=== PATIENT | female | born 1955 | race Caucasian/White ===

== ENCOUNTER 2017-09-12 16:10 | Emergency (ER) | payer MEDICARE, OTHER ==
[2017-09-12 16:55] VITALS: BP 104/68
[2017-09-12] MEDS ORDERED: HYDROmorphone 0.5 MG/0.5 ML Syringe IM ONE (18:14)
[2017-09-12] MEDS ORDERED: Cyclobenzaprine 10 MG Tab PO ONE (18:15)
[2017-09-12] MEDS ORDERED: Ketorolac 60 MG/2 ML SDV IM ONE (18:15)
--- NOTE | 2017-09-12 18:19 | EDM.PDOC ---
ED HPI GENERAL MEDICAL PROBLEM - General Chief Complaint: Back Pain or Injury Stated Complaint: FALL/RIB INJURY Time Seen by Provider: 09/12/17 17:39 Source of Information: Reports: Patient History Limitations: Reports: No Limitations - History of Present Illness INITIAL COMMENTS - FREE TEXT/NARRATIVE: Patient is a 61-year-old female who presents to the ED complaining of right lateral chest discomfort. Patient states she slipped and fell on a large trunk earlier today at approximately 2:00 p.m.. Pain is isolated to the right lateral ribs with increase noted with taking a deep breath, palpation, and movement. Has a history of fractured ribs in the past and states similar symptoms current today. No shortness of breath, nausea/vomiting, abdominal pain, no n/t to extremities, neck or back pain, or any additional complaints. Pain currently 6 out of 10. She has not taken any medications for discomfort. She does have a history of fibromyalgia, diabetic neuropathy, arthritis, depression, and utilize medical marijuana. In the past she's been on narcotics. Right Chest Pain Score (Numeric/FACES): 6 - Related Data Allergies Allergy/AdvReac Type Severity Reaction Status Date / Time butorphanol tartrate Allergy Mild Hives Verified 09/12/17 16:52 [From Stadol] ketorolac Allergy Mild Itching Verified 09/12/17 19:36 meperidine HCl [From Demerol] Allergy Mild Hives Verified 09/12/17 16:52 propoxyphene HCl Allergy Mild Hives Verified 09/12/17 16:52 [From Darvon] propoxyphene napsylate Allergy Mild Hives Verified 09/12/17 16:52 [From Darvocet-N] codeine Allergy Hives Verified 09/12/17 16:52 sulfacetamide Allergy Hives Verified 09/12/17 16:52 Home Meds: Home Meds Cholecalciferol (Vitamin D3) [Vitamin D3] 2,000 unit PO DAILY 04/02/14 [History] Venlafaxine [Effexor] 100 mg PO BID 04/02/14 [History] traMADol [Ultram] 50 mg PO TID PRN 04/02/14 [History] Albuterol Sulfate [Proair Respiclick] 2 puff INH Q4H PRN 05/13/15 [History] Alum Hydrox/Mag Hydrox/Simeth [Maalox Advanced] 30 mg PO Q4H PRN 05/13/15 [ History] Benzonatate 200 mg PO Q8H PRN 05/13/15 [History] Buprenorphine [Butrans] 15 mcg TOP WEEKLY 05/13/15 [History] Cyanocobalamin (Vitamin B-12) [Vitamin B-12] 1,000 mcg PO DAILY 05/13/15 [ History] Furosemide [Lasix] 20 mg PO DAILY 05/13/15 [History] LORazepam [Ativan] 0.5 mg PO BID PRN 05/13/15 [History] Melatonin 5 - 10 mg PO BEDTIME 05/13/15 [History] Pedi Multivit #22/Vit D3/Vit K [Multivitamins Chewables Tablet] 2 tab PO DAILY 05/13/15 [History] Propranolol [Inderal] 10 mg PO DAILY 05/13/15 [History] Thiamine HCl [Vitamin B-1] 250 mg PO DAILY 05/13/15 [History] Topiramate 25 mg PO BID 05/13/15 [History] busPIRone [Buspar] 5 mg PO BID 05/13/15 [History] traZODone 100 mg PO TID 05/13/15 [History] oxyCODONE HCl/Acetaminophen [Percocet 5-325 mg Tablet] 1 - 2 tab PO Q6H PRN #20 tablet 05/16/15 [Rx] KCl/Na Sulf,Bicarb,Cl/PEG 3351 [GoLytely] 4,000 ml PO ONETIME #1 bottle [Rx] Walker [Ultra-Light Rollator] 1 each MC DAILY #1 each 06/24/16 [Rx] Hydrocodone/Acetaminophen [[place] 5-325] 1 tab PO Q6HR PRN #14 tablet 09/12/17 [ Rx] Past Medical History Other Respiratory History: Pt uses albuterol prn but states she has not been diagnosed with asthma Other Genitourinary History: enlarged renal artery Other OB/BYN History: hysterectomy Musculoskeletal History: Reports: Fibromyalgia Neurological History: Reports: Neuropathy, Diabetic, Neuropathy, Peripheral Other Neuro History: memory l Psychiatric History: Reports: Anxiety, Depression Endocrine/Metabolic History: Reports: Diabetes, Type II Other Dermatologic History: dermatitis - Infectious Disease History Infectious Disease History: Reports: Chicken Pox - Past Surgical History HEENT Surgical History: Reports: Tonsillectomy GI Surgical History: Reports: Appendectomy, Bariatric Procedure, Cholecystectomy , Colonoscopy, Other (See Below) Other GI Surgeries/Procedures: 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 Female Surgical History: Reports: Hysterectomy Social & Family History - Family History Family Medical History: Noncontributory - Tobacco Use Smoking Status *Q: Current Every Day Smoker Years of Tobacco use: 45 Packs/Tins Daily: 0.2 Used Tobacco, but Quit: No Second Hand Smoke Exposure: No - Caffeine Use Caffeine Use: Reports: Coffee, Tea - Alcohol Use Days Per Week of Alcohol Use: 0 - Recreational Drug Use Recreational Drug Use: Yes Recreational Drug Type: Reports: Marijuana/Hashish Recreational Drug Use Frequency: Daily ED ROS GENERAL - Review of Systems Review Of Systems: ROS reveals no pertinent complaints other than HPI. ED EXAM, GENERAL - Physical Exam Exam: See Below Exam Limited By: No Limitations General Appearance: Alert, WD/WN, No Apparent Distress Ears: Hearing Grossly Normal Nose: Normal Inspection Throat/Mouth: Normal Voice, No Airway Compromise Head: Atraumatic, Normocephalic Neck: Normal Inspection, Supple Respiratory/Chest: No Respiratory Distress, Lungs Clear, Normal Breath Sounds, No Accessory Muscle Use, Other (Tenderness noted to the right lateral with no acute bony abnormalities, swelling, bruising, or swelling present.) Peripheral Pulses: 2+: Radial (R) GI/Abdominal: Normal Bowel Sounds, Soft, Non-Tender, No Organomegaly, No Distention Back Exam: Normal Inspection, Full Range of Motion. No: Paraspinal Tenderness, Vertebral Tenderness Neurological: Alert, Oriented, CN II-XII Intact, Normal Cognition, No Motor/ Sensory Deficits Psychiatric: Normal Affect, Normal Mood Skin Exam: Warm, Dry, Intact, Normal Color Course - Vital Signs Last Recorded V/S: Last Vital Signs Temp 97.3 F 09/12/17 16:53 Pulse 73 09/12/17 16:53 Resp 16 09/12/17 16:53 BP 104/68 09/12/17 16:53 Pulse Ox 99 09/12/17 16:53 - Orders/Labs/Meds Orders: Active Orders 24 hr Category Date Time Status Ribs 2V w Chest Rt [CR] Stat Exams 09/12/17 18:15 Taken Meds: Medications Discontinued Medications Generic Name Dose Route Start Last Admin Trade Name Freq PRN Reason Stop Dose Admin Cyclobenzaprine HCl 10 mg 09/12/17 18:15 09/12/17 18:28 Flexeril PO 09/12/17 18:16 10 mg ONETIME ONE Administration Diphenhydramine HCl 50 mg 09/12/17 18:47 09/12/17 18:51 Benadryl PO 09/12/17 18:48 50 mg ONETIME ONE Administration Hydromorphone HCl 0.5 mg 09/12/17 18:14 09/12/17 18:31 Dilaudid IM 09/12/17 18:15 0.5 mg ONETIME ONE Administration Ketorolac Tromethamine 60 mg 09/12/17 18:15 09/12/17 18:28 Toradol IM 09/12/17 18:16 60 mg ONETIME ONE Administration - Re-Assessments/Exams Free Text/Narrative Re-Assessment/Exam: Order Dilaudid 0.5 mg IM, Flagyl temporal grams by mouth, Toradol 60 mg IM along with right-sided rib series with a chest. Per nursing staff patient does have allergy to Toradol. With reviewing the medications that I was going to administer to her she did not states she has an allergy to Toradol. In addition when nursing staff prior to administering the medication told the patient what they were going to give and the patient did not states she had a allergy to Toradol. Nursing staff spoke with the patient and the patient states she has she forgot about the Toradol allergy. She states her memory is poor. Does not develop hives but mild itching only. Ordered Benadryl 50 mg by mouth. X-rays of the chest and ribs revealed no acute findings noted. Reviewed with Dr. Ray. Final interpretation is pending. Patient states symptoms have drastically improved with the above therapies. She is ready to be discharged home. Discharge instructions as documented. Departure - Departure Time of Disposition: 20:18 Disposition: Home, Self-Care 01 Condition: Good Clinical Impression: Rib pain on right side - Discharge Information Prescriptions: Hydrocodone/Acetaminophen [[place] 5-325] 1 tab PO Q6HR PRN #14 tablet PRN Reason: Pain Instructions: Pain Medicine Instructions, [id number] Referrals: Dwayne Herrmann MD [Primary Care Provider] - Forms: ED Department Discharge Additional Instructions: Chest x-ray did not reveal any acute bony abnormalities. Final interpretation pending. Etiology current complaint contusion to the chest. Treatment is symptomatic care including refraining from any activities that cause worsening pain. Tylenol and ibuprofen in alternating fashion for discomfort. Ice to the affected area as needed. For severe pain take [place] one tab every 6 hours as needed. Do not take Tylenol and [place] together. No driving this evening since receiving a sedative medication in the ED. Return to ED for any new or worsening symptoms. See her PCP the next 7-10 days if symptoms have not improved or additional pain therapy is required. - My Orders Last 24 Hours: My Active Orders 09/12/17 18:15 Ribs 2V w Chest Rt [CR] Stat - Assessment/Plan Last 24 Hours: My Active Orders 09/12/17 18:15 Ribs 2V w Chest Rt [CR] Stat
[2017-09-12] MEDS ORDERED: diphenhydrAMINE 50 MG Cap PO ONE (18:47)
--- NOTE | 2017-09-14 10:02 | CR ---
Chest and right ribs: Frontal view of the chest was obtained as well as 2 views of the right ribs. Comparison: Prior chest and right rib exam of 06/11/09. Heart size and mediastinum are within normal limits. Lungs are clear. Multiple surgical clips seen within the abdomen. No discrete right-sided rib fracture or other right-sided rib abnormality is seen. Slight scoliosis noted within the spine with scattered degenerative endplate spurring. Impression: 1. Incidental findings. Nothing acute is seen on frontal chest x-ray. 2. No discrete right-sided rib abnormality is seen. Nondisplaced fracture could be missed. Diagnostic code #2
== END 2017-09-12 20:35 | disposition home or self-care (01) ==
LOC: JD.ED 16:10 → SUPCPDRO 16:10 → JD.ED 20:35
DX: R07.81 Pleurodynia (principal); E11.40 Type 2 diabetes mellitus with diabetic neuropathy, unspecified; F17.210 Nicotine dependence, cigarettes, uncomplicated; Z88.2 Allergy status to sulfonamides; Z88.5 Allergy status to narcotic agent; Z88.6 Allergy status to analgesic agent; Z79.899 Other long term (current) drug therapy; W01.0XXA Fall on same level from slipping, tripping and stumbling without subsequent striking against object, initial encounter
CPT/HCPCS: 71101; 96372; 99284; A9270; J1170; J1885; 99283

== ENCOUNTER 2018-03-15 13:32 | Emergency (ER) | payer MEDICARE, OTHER ==
[2018-03-15 13:48] VITALS: BP 146/92
--- NOTE | 2018-03-15 14:35 | EDM.PDOC ---
ED HPI GENERAL MEDICAL PROBLEM - General Chief Complaint: Upper Extremity Injury/Pain Stated Complaint: LEFT ARM INJURY Time Seen by Provider: 03/15/18 14:00 Source of Information: Reports: Patient History Limitations: Reports: No Limitations - History of Present Illness INITIAL COMMENTS - FREE TEXT/NARRATIVE: 62-year-old female presents for evaluation and treatment of injury to the left arm. Patient reports last night she was walking to go down some stairs when she lost her balance. She states that she fell backwards. Unclear exactly how she landed on her arm. She is primarily complaining of pain to the left arm from the elbow to the wrist. She reports pain with movement. She did take some Tylenol for pain but continues to have discomfort. No numbness or tingling. No head trauma or LOC. Primary care provider is Deandra Burk. Location: Reports: Upper Extremity, Left Left Arm Pain Score (Numeric/FACES): 5 - Related Data Allergies Allergy/AdvReac Type Severity Reaction Status Date / Time butorphanol tartrate Allergy Mild Hives Verified 09/12/17 16:52 [From Stadol] ketorolac Allergy Mild Itching Verified 09/12/17 19:36 meperidine HCl [From Demerol] Allergy Mild Hives Verified 09/12/17 16:52 propoxyphene HCl Allergy Mild Hives Verified 09/12/17 16:52 [From Darvon] propoxyphene napsylate Allergy Mild Hives Verified 09/12/17 16:52 [From Darvocet-N] codeine Allergy Hives Verified 09/12/17 16:52 sulfacetamide Allergy Hives Verified 09/12/17 16:52 Home Meds: Home Meds Cholecalciferol (Vitamin D3) [Vitamin D3] 2,000 unit PO DAILY 04/02/14 [History] Venlafaxine [Effexor] 150 mg PO BID 04/02/14 [History] traMADol [Ultram] 50 mg PO TID PRN 04/02/14 [History] Albuterol Sulfate [Proair Respiclick] 2 puff INH Q6H PRN 05/13/15 [History] Alum Hydrox/Mag Hydrox/Simeth [Maalox Advanced] 30 mg PO Q4H PRN 05/13/15 [ History] Benzonatate 200 mg PO Q8H PRN 05/13/15 [History] Cyanocobalamin (Vitamin B-12) [Vitamin B-12] 1,000 mcg PO DAILY 05/13/15 [ History] LORazepam [Ativan] 0.5 mg PO BID PRN 05/13/15 [History] Melatonin 5 - 10 mg PO BEDTIME 05/13/15 [History] Thiamine HCl [Vitamin B-1] 250 mg PO DAILY 05/13/15 [History] Topiramate 25 mg PO BID 05/13/15 [History] busPIRone [Buspar] 5 mg PO TID 05/13/15 [History] traZODone 100 mg PO BEDTIME 05/13/15 [History] Diclofenac Sodium [Voltaren] 4 gram TOP BID PRN 03/15/18 [History] Doxycycline [Vibramycin] 100 mg PO BID 03/15/18 [History] Ferrous Sulfate, Dried [Iron] 142 mg PO DAILY 03/15/18 [History] Gabapentin [Neurontin] 600 mg PO BEDTIME 03/15/18 [History] Metoclopramide HCl [Reglan] 10 mg PO DAILY PRN 03/15/18 [History] Multivitamin [Multivitamins] 1 tab PO DAILY 03/15/18 [History] Omeprazole Magnesium [Prilosec Otc] 20 mg PO DAILY 03/15/18 [History] SUMAtriptan Succinate [Imitrex] 100 mg PO DAILY PRN 03/15/18 [History] SitaGLIPtin [Januvia] 100 mg PO DAILY 03/15/18 [History] Sucralfate [Carafate] 1 gram PO QID 03/15/18 [History] Past Medical History HEENT History: Reports: Impaired Vision Other Respiratory History: Pt uses albuterol prn but states she has not been diagnosed with asthma Other Genitourinary History: enlarged renal artery Other OB/BYN History: hysterectomy Musculoskeletal History: Reports: Arthritis, Fracture, Fibromyalgia, Osteoporosis Neurological History: Reports: Neuropathy, Diabetic, Neuropathy, Peripheral Other Neuro History: memory l Psychiatric History: Reports: Addiction, Anxiety, Depression, Panic Attack Other Psychiatric History: past narcotic addiction Endocrine/Metabolic History: Reports: Diabetes, Type II Hematologic History: Reports: Anemia Oncologic (Cancer) History: Reports: Renal Other Dermatologic History: dermatitis - Infectious Disease History Infectious Disease History: Reports: Chicken Pox - Past Surgical History HEENT Surgical History: Reports: Tonsillectomy GI Surgical History: Reports: Appendectomy, Bariatric Procedure, Cholecystectomy , Colonoscopy, Other (See Below) Other GI Surgeries/Procedures: 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 Female Surgical History: Reports: Hysterectomy, Nephrectomy Other Female Surgeries/Procedures: Right nephrectomy due to cancer Other Musculoskeletal Surgeries/Procedures:: Knee surgery, left wrist surgery Social & Family History - Family History Family Medical History: Noncontributory - Tobacco Use Smoking Status *Q: Current Every Day Smoker Years of Tobacco use: 45 Packs/Tins Daily: 0.2 Used Tobacco, but Quit: No Second Hand Smoke Exposure: No - Caffeine Use Caffeine Use: Reports: Coffee, Tea - Alcohol Use Days Per Week of Alcohol Use: 0 - Recreational Drug Use Recreational Drug Use: Yes Recreational Drug Type: Reports: Marijuana/Hashish Recreational Drug Use Frequency: Daily Review of Systems - Review of Systems Review Of Systems: See Below Musculoskeletal: Reports: Arm Pain (left elbow to wrist) Skin: Denies: Bruising, Wound Neurological: Denies: Numbness, Tingling ED EXAM, GENERAL - Physical Exam Exam: See Below Exam Limited By: No Limitations General Appearance: Alert, WD/WN, No Apparent Distress, Thin Respiratory/Chest: No Respiratory Distress Cardiovascular: Normal Peripheral Pulses, Regular Rate, Rhythm Peripheral Pulses: 2+: Radial (L) Extremities: Normal Inspection, Normal Capillary Refill, Limited Range of Motion (due to pain, pain with supination and pronation, able to flex and extend left elbow, pain with flexion and extension of the left wrist; no snuff box tenderness) Neurological: Alert, Oriented, Normal Cognition Psychiatric: Normal Affect, Normal Mood Skin Exam: Warm, Dry, Normal Color. No: Ecchymosis Course - Vital Signs Last Recorded V/S: Last Vital Signs Temp 36.9 C 03/15/18 13:47 Pulse 93 03/15/18 13:47 Resp 20 03/15/18 13:47 BP 146/92 H 03/15/18 13:47 Pulse Ox 100 03/15/18 13:47 - Orders/Labs/Meds Orders: Active Orders 24 hr Category Date Time Status Forearm 2V Lt [CR] Stat Exams 03/15/18 14:10 Taken Wrist Comp Min 3V Lt [CR] Stat Exams 03/15/18 14:10 Taken - Radiology Interpretation Free Text/Narrative:: Left wrist: 4 views of the left wrist were obtained. Comparison: No prior wrist exam. Healed distal radial fracture with orthopedic hardware. Small ununited fracture within the ulnar styloid process. Joint spaces within the wrist are preserved. Minimal spurring noted off the trapezium. No acute fracture or other bony abnormality is seen. Impression: 1. Incidental findings. Nothing acute is seen on left wrist exam. Left forearm: 2 views of the left forearm were obtained. Comparison: No prior forearm study. Old ununited fracture is noted within the ulnar styloid process. Plate and screws affix an old healed distal radial fracture. Other portions of the forearm study appear unremarkable. No acute fracture or other abnormality is appreciated. Impression: 1. Old healed distal radial fracture with orthopedic hardware. Small ununited ulnar styloid avulsion fracture. 2. Left forearm study is otherwise unremarkable. - Re-Assessments/Exams Free Text/Narrative Re-Assessment/Exam: 03/15/18 15:31 I reviewed the x-ray results with the patient. Likely soft tissue injury. Will put her in a splint for her comfort. Discharge instructions as documented. Departure - Departure Time of Disposition: 15:34 Disposition: Home, Self-Care 01 Condition: Fair Clinical Impression: Arm pain Fall Qualifiers: Encounter type: initial encounter Qualified Code(s): W19.XXXA - Unspecified fall, initial encounter - Discharge Information Instructions: Wrist Pain, Adult, [id number] Referrals: Deandra Burk NP [Primary Care Provider] - Forms: ED Department Discharge Additional Instructions: [id number] Tylenol or Motrin as needed for pain and discomfort. Recommend using ice to the sore areas for additional pain relief. Use a wrist splint as needed discomfort. Follow-up with your primary care provider if symptoms have not improved within 2 weeks. please return to the ER if your symptoms change or worsen. - My Orders Last 24 Hours: My Active Orders 03/15/18 14:10 Forearm 2V Lt [CR] Stat Wrist Comp Min 3V Lt [CR] Stat - Assessment/Plan Last 24 Hours: My Active Orders 03/15/18 14:10 Forearm 2V Lt [CR] Stat Wrist Comp Min 3V Lt [CR] Stat
--- NOTE | 2018-03-16 07:38 | CR ---
Left wrist: Four views of the left wrist were obtained. Comparison: No prior wrist exam. Healed distal radial fracture with orthopedic hardware. Small ununited fracture within the ulnar styloid process. Joint spaces within the wrist are preserved. Minimal spurring noted off the trapezium. No acute fracture or other bony abnormality is seen. Impression: 1. Incidental findings. Nothing acute is seen on left wrist exam. Diagnostic code #2
--- NOTE | 2018-03-16 07:38 | CR ---
Left forearm: Two views of the left forearm were obtained. Comparison: No prior forearm study. Old ununited fracture is noted within the ulnar styloid process. Plate and screws affix an old healed distal radial fracture. Other portions of the forearm study appear unremarkable. No acute fracture or other abnormality is appreciated. Impression: 1. Old healed distal radial fracture with orthopedic hardware. Small ununited ulnar styloid avulsion fracture. 2. Left forearm study is otherwise unremarkable. Diagnostic code #2
== END 2018-03-15 15:50 | disposition home or self-care (01) ==
LOC: JD.ED 13:32
DX: M79.602 Pain in left arm (principal); F32.9 Major depressive disorder, single episode, unspecified; F41.8 Other specified anxiety disorders; E11.42 Type 2 diabetes mellitus with diabetic polyneuropathy; D64.9 Anemia, unspecified; F17.210 Nicotine dependence, cigarettes, uncomplicated; Z88.5 Allergy status to narcotic agent; Z88.8 Allergy status to other drugs, medicaments and biological substances; Z79.899 Other long term (current) drug therapy; W19.XXXA Unspecified fall, initial encounter
CPT/HCPCS: 73090-26-LT; 73090-LT; 73110-26-LT; 73110-LT; 99283

== ENCOUNTER 2020-08-10 13:58 | Emergency (ER) | payer MEDICARE, OTHER ==
[2020-08-10 14:09] VITALS: BP 113/91; PULSE 65
[2020-08-10] MEDS ORDERED: Naloxone 2 MG/2 ML Syringe ONE (14:31)
[2020-08-10] MEDS ORDERED: Naloxone 0.4 MG/ML SDV IVPUSH ONE ×2 (14:35→14:45)
--- NOTE | 2020-08-10 14:56 | EDM.PDOC ---
ED HPI GENERAL MEDICAL PROBLEM - General Chief Complaint: General Stated Complaint: [facility] Time Seen by Provider: 08/10/20 14:35 - History of Present Illness INITIAL COMMENTS - FREE TEXT/NARRATIVE: 64-year-old female brought into the emergency room with decreased level of consciousness. The patient is arousable and will answer questions. She denies taking too many medications. And she answers questions appropriately. She states she just is not herself and she is quite concerned about not being able to get reasonable sleep. It is concerning that the patient takes Xanax and I believe Ativan for anxiety but does not take anything at night. She is also reportedly uses some pain medication. Patient has generalized pain but no localized pain at this time. Patient states that she falls frequently but denies any head injuries and is usually able to catch herself. Generalized Pain Score (Numeric/FACES): 4 - Related Data Allergies Allergy/AdvReac Type Severity Reaction Status Date / Time butorphanol tartrate Allergy Mild Hives Verified 08/10/20 14:10 [From Stadol] ketorolac Allergy Mild Itching Verified 08/10/20 14:10 meperidine HCl [From Demerol] Allergy Mild Hives Verified 08/10/20 14:10 propoxyphene HCl Allergy Mild Hives Verified 08/10/20 14:10 [From Darvon] propoxyphene napsylate Allergy Mild Hives Verified 08/10/20 14:10 [From Darvocet-N] codeine Allergy Hives Verified 08/10/20 14:10 sulfacetamide Allergy Hives Verified 08/10/20 14:10 Home Meds: Home Meds Cholecalciferol (Vitamin D3) [Vitamin D3] 2,000 unit PO DAILY 04/02/14 [History] traMADol [Ultram] 50 mg PO Q6HR PRN 04/02/14 [History] Albuterol Sulfate [Proair Respiclick] 2 puff INH Q6H PRN 05/13/15 [History] Alum Hydrox/Mag Hydrox/Simeth [Maalox Advanced] 30 mg PO Q4H PRN 05/13/15 [History] Benzonatate 200 mg PO Q8H PRN 05/13/15 [History] Cyanocobalamin (Vitamin B-12) [Vitamin B-12] 1,000 mcg PO DAILY 05/13/15 [History] LORazepam [Ativan] 0.5 mg PO BID PRN 05/13/15 [History] Melatonin 5 - 10 mg PO BEDTIME 05/13/15 [History] Thiamine HCl [Vitamin B-1] 250 mg PO DAILY 05/13/15 [History] Topiramate 25 mg PO BID 05/13/15 [History] busPIRone [Buspar] 5 mg PO TID 05/13/15 [History] traZODone 100 mg PO DAILY 05/13/15 [History] Diclofenac Sodium [Voltaren] 4 gram TOP BID PRN 03/15/18 [History] Doxycycline [Vibramycin] 100 mg PO BID 03/15/18 [History] Ferrous Sulfate, Dried [Iron] 142 mg PO DAILY 03/15/18 [History] Gabapentin [Neurontin] 600 mg PO Q12HR 03/15/18 [History] Metoclopramide HCl [Reglan] 10 mg PO DAILY PRN 03/15/18 [History] Multivitamin [Multivitamins] 1 tab PO DAILY 03/15/18 [History] Omeprazole Magnesium [Prilosec Otc] 20 mg PO DAILY 03/15/18 [History] SUMAtriptan succinate [Imitrex] 100 mg PO DAILY PRN 03/15/18 [History] SitaGLIPtin [Januvia] 100 mg PO DAILY 03/15/18 [History] ALPRAZolam [Alprazolam] 0.5 mg PO Q12HR 08/10/20 [History] Hydrocodone/Acetaminophen [Hydrocodone-Acetamin 5-325 mg] 1 each PO Q6HR 08/10/20 [History] Meloxicam 7.5 mg PO ASDIRECTED 08/10/20 [History] Simvastatin [Zocor] 10 mg PO BEDTIME 08/10/20 [History] Sucralfate [Carafate] 1 gm PO ASDIRECTED PRN 08/10/20 [History] Venlafaxine [Effexor XR] 300 mg PO DAILY 08/10/20 [History] buPROPion [buPROPion XL] 150 mg PO ASDIRECTED 08/10/20 [History] hydroCHLOROthiazide [Hydrochlorothiazide] 25 mg PO DAILY 08/10/20 [History] lamoTRIgine 100 mg PO ASDIRECTED 08/10/20 [History] metFORMIN [Glucophage] 500 mg PO BIDMEALS 08/10/20 [History] oxyCODONE HCl/Acetaminophen [Percocet 5-325 mg Tablet] 1 tab PO ASDIRECTED 08/10/20 [History] Past Medical History HEENT History: Reports: Impaired Vision Other Respiratory History: Pt uses albuterol prn but states she has not been diagnosed with asthma Other Genitourinary History: enlarged renal artery 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 Musculoskeletal History: Reports: Arthritis, Fracture, Fibromyalgia, Osteoporosis Neurological History: Reports: Neuropathy, Diabetic, Neuropathy, Peripheral Other Neuro History: memory l Psychiatric History: Reports: Addiction, Anxiety, Depression, Panic Attack Other Psychiatric History: past narcotic addiction Endocrine/Metabolic History: Reports: Diabetes, Type II Hematologic History: Reports: Anemia Oncologic (Cancer) History: Reports: Renal Other Dermatologic History: dermatitis - Infectious Disease History Infectious Disease History: Reports: Chicken Pox - Past Surgical History HEENT Surgical History: Reports: Tonsillectomy GI Surgical History: Reports: Appendectomy, Bariatric Procedure, Cholecystectomy, Colonoscopy, Other (See Below) Other GI Surgeries/Procedures: 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 Female Surgical History: Reports: Hysterectomy, Nephrectomy Other Female Surgeries/Procedures: Right nephrectomy due to cancer Other Musculoskeletal Surgeries/Procedures:: Knee surgery, left wrist surgery Social & Family History - Family History Family Medical History: Noncontributory - Tobacco Use Smoking Status *Q: Current Every Day Smoker Years of Tobacco use: 46 Packs/Tins Daily: 0.2 - Caffeine Use Caffeine Use: Reports: Coffee, Energy Drinks, Soda, Tea - Recreational Drug Use Recreational Drug Use: Yes Drug Use in Last 12 Months: Yes Recreational Drug Type: Reports: Marijuana/Hashish Recreational Drug Use Frequency: Daily ED ROS GENERAL - Review of Systems Review Of Systems: See Below Constitutional: Reports: No Symptoms HEENT: Reports: No Symptoms Respiratory: Reports: No Symptoms Cardiovascular: Reports: No Symptoms GI/Abdominal: Reports: No Symptoms : Reports: No Symptoms Musculoskeletal: Reports: Other (Generalized aches and pains) Skin: Reports: No Symptoms Neurological: Reports: No Symptoms Psychiatric: Reports: Anxiety, Depression. Denies: Hallucinations, Homicidal Ideation, Mood Lability, Suicidal Ideation Hematologic/Lymphatic: Reports: No Symptoms - Physical Exam Exam: See Below Exam Limited By: Other (Initially she seemed overly sedated. But she was allowed to sleep and after this was ambulatory in the department was answering questions very appropriately.) General Appearance: No Apparent Distress, Other (Initially sedated but this past) Eye Exam: Bilateral Eye: Normal Inspection, PERRL Ears: Normal External Exam, Normal Canal, Hearing Grossly Normal, Normal TMs Nose: Normal Inspection, Normal Mucosa, No Blood Throat/Mouth: Normal Inspection, Normal Lips, Normal Teeth, Normal Gums, Normal Oropharynx, Normal Voice, No Airway Compromise Head Exam: Atraumatic, Normocephalic, Other (No evidence of recent trauma) Neck: Normal Inspection, Supple, Non-Tender, Full Range of Motion. No: Lymphadenopathy (L), Lymphadenopathy (R), Tender Midline Respiratory/Chest: No Respiratory Distress, Lungs Clear, Normal Breath Sounds Cardiovascular: Regular Rate, Rhythm, No Edema, No Murmur GI/Abdominal: Normal Bowel Sounds, Soft, Non-Tender Neuro Exam (Abbreviated): Alert, Oriented, Normal Cognition Back Exam: Normal Inspection, Full Range of Motion. No: CVA Tenderness (L), CVA Tenderness (R) Psychiatric: Other (Shortly before discharge and with long talk with the patient she has some depression but is more bothered by her insomnia. She absolutely denies any suicidal intent or wish or thoughts. And she has no wish to hurt anybody else. She is frustrated that she is not sleeping) Skin Exam: Warm, Dry, Intact EKG INTERPRETATION EKG Date: 08/10/20 Rhythm: NSR Rate (Beats/Min): 60 [place]: Normal P-Wave: Present QRS: Normal ST-T: Normal QT: Normal Comparison: Change From Previous EKG (The early transition seen on EKG from 09/2016 is not seen today otherwise no significant change minimal ST changes appear to be stable) EKG Interpretation Comments: Borderline EKG Course - Vital Signs Last Recorded V/S: Last Vital Signs Temp 36.2 C 08/10/20 14:02 Pulse 65 08/10/20 14:02 Resp 18 08/10/20 14:02 BP 113/91 H 08/10/20 14:02 Pulse Ox 100 08/10/20 14:02 - Orders/Labs/Meds Orders: Active Orders 24 hr Category Date Time Status EKG Documentation Completion [RC] ASDIRECTED Care 08/10/20 14:18 Active CULTURE URINE [RM] Stat Lab 08/10/20 18:06 Received EKG 12 Lead [EK] Stat Ther 08/10/20 14:17 Ordered Labs: Laboratory Tests 08/10/20 08/10/20 08/10/20 Range/Units 15:20 15:20 15:20 PT 10.6 (9.7-11.7) SECONDS INR 0.99 Sodium 134 L (136-145) mEq/L Potassium 3.6 (3.5-5.1) mEq/L Chloride 99 (98-107) mEq/L Carbon Dioxide 29 (21-32) mEq/L Anion Gap 9.6 (5-15) BUN 10 (7-18) mg/dL Creatinine 1.0 (0.55-1.02) mg/dL Est Cr Clr Drug Dosing 50.12 mL/min Estimated GFR (MDRD) 56 (>60) mL/min BUN/Creatinine Ratio 10.0 L (14-18) Glucose 155 H (80-115) mg/dL Calcium 9.1 (8.5-10.1) mg/dL Total Bilirubin 0.7 (0.2-1.0) mg/dL AST 19 (15-37) U/L ALT 21 (14-59) U/L Alkaline Phosphatase 111 (46-116) U/L Troponin I < 0.017 (0.00-0.056) ng/mL Total Protein 6.5 (6.4-8.2) g/dl Albumin 3.1 L (3.4-5.0) g/dl Globulin 3.4 gm/dL Albumin/Globulin Ratio 0.9 L (1-2) TSH 3rd Generation 0.503 (0.358-3.74) uIU/mL Urine Color (Yellow) Urine Appearance (Clear) Urine pH (5.0-8.0) Ur Specific [place] (1.005-1.030) Urine Protein (Negative) Urine Glucose (UA) (Negative) Urine Ketones (Negative) Urine Occult Blood (Negative) Urine Nitrite (Negative) Urine Bilirubin (Negative) Urine Urobilinogen (0.2-1.0) Ur Leukocyte Esterase (Negative) Urine RBC (0-5) /hpf Urine WBC (0-5) /hpf Ur Squamous Epith Cells (0-5) /hpf Urine Bacteria (FEW) /hpf Urine Mucus (FEW) /hpf Salicylates 3.1 (2.8-20) mg/dL Urine Opiates Screen (DGTEUZ=753) Ur Buprenorphine Scrn (CUTOFF=10) Ur Oxycodone Screen (GMH6OP=034) Urine Methadone Screen (PQAHCB=658) Ur Propoxyphene Screen (TVXLCA=478) Acetaminophen 0 L (10-30) ug/mL Ur Barbiturates Screen (UILYZF=106) Ur Tricyclics Screen (BKITKJ=053) Ur Phencyclidine Scrn (CUTOFF=25) Ur Amphetamine Screen (GXMFWR=376) U Methamphetamines Scrn (YCXHZR=803) U Benzodiazepines Scrn (VDMIAE=203) U Cocaine Metab Screen (UJNTKA=007) U Marijuana (THC) Screen (CUTOFF=50) Ethyl Alcohol 0.00 (0.00) gm% 08/10/20 08/10/20 Range/Units 18:06 18:06 PT (9.7-11.7) SECONDS INR Sodium (136-145) mEq/L Potassium (3.5-5.1) mEq/L Chloride (98-107) mEq/L Carbon Dioxide (21-32) mEq/L Anion Gap (5-15) BUN (7-18) mg/dL Creatinine (0.55-1.02) mg/dL Est Cr Clr Drug Dosing mL/min Estimated GFR (MDRD) (>60) mL/min BUN/Creatinine Ratio (14-18) Glucose (80-115) mg/dL Calcium (8.5-10.1) mg/dL Total Bilirubin (0.2-1.0) mg/dL AST (15-37) U/L ALT (14-59) U/L Alkaline Phosphatase (46-116) U/L Troponin I (0.00-0.056) ng/mL Total Protein (6.4-8.2) g/dl Albumin (3.4-5.0) g/dl Globulin gm/dL Albumin/Globulin Ratio (1-2) TSH 3rd Generation (0.358-3.74) uIU/mL Urine Color Yellow (Yellow) Urine Appearance Clear (Clear) Urine pH 6.5 (5.0-8.0) Ur Specific [place] 1.015 (1.005-1.030) Urine Protein Negative (Negative) Urine Glucose (UA) Negative (Negative) Urine Ketones Negative (Negative) Urine Occult Blood Negative (Negative) Urine Nitrite Negative (Negative) Urine Bilirubin Negative (Negative) Urine Urobilinogen 0.2 (0.2-1.0) Ur Leukocyte Esterase Trace H (Negative) Urine RBC 0-5 (0-5) /hpf Urine WBC 0-5 (0-5) /hpf Ur Squamous Epith Cells 0-5 (0-5) /hpf Urine Bacteria Few (FEW) /hpf Urine Mucus Not seen (FEW) /hpf Salicylates (2.8-20) mg/dL Urine Opiates Screen Negative (WBIRSF=655) Ur Buprenorphine Scrn Negative (CUTOFF=10) Ur Oxycodone Screen Negative (RES2SM=164) Urine Methadone Screen Negative (WCREQF=660) Ur Propoxyphene Screen Negative (FPJNTB=001) Acetaminophen (10-30) ug/mL Ur Barbiturates Screen Negative (VLZYZJ=541) Ur Tricyclics Screen Negative (ASXLOG=828) Ur Phencyclidine Scrn Negative (CUTOFF=25) Ur Amphetamine Screen Negative (UOSIVK=159) U Methamphetamines Scrn Negative (WNFULQ=028) U Benzodiazepines Scrn Presumptive positive H (TWAJLB=507) U Cocaine Metab Screen Negative (SYGWKX=707) U Marijuana (THC) Screen Presumptive positive H (CUTOFF=50) Ethyl Alcohol (0.00) gm% Meds: Medications Discontinued Medications Generic Name Dose Route Start Last Admin Trade Name Gunnar PRN Reason Stop Dose Admin Naloxone HCl Confirm 08/10/20 14:31 Narcan Administered 08/10/20 14:32 Dose 2 mg .ROUTE .STK-MED ONE Naloxone HCl 0.4 mg 08/10/20 14:35 08/10/20 14:38 Narcan IVPUSH 08/10/20 14:36 0.4 mg ONETIME ONE Administration Naloxone HCl 0.4 mg 08/10/20 14:45 08/10/20 14:48 Narcan IVPUSH 08/10/20 14:46 0.4 mg ONETIME ONE Administration - Re-Assessments/Exams Free Text/Narrative Re-Assessment/Exam: 08/10/20 19:42 Patient was brought in and was initially reported to me is unresponsive however she would answer questions open her eyes on command but seem to be sedated she was given Romazicon and did not seem to help she was also given Narcan that was thought to maybe help a little bit however urine drug screen was negative for opioids. The patient was allowed to rest and after some rest she was acting quite normal was ambulatory in the emergency department and was talking normally answering questions appropriately. The patient denies taking too many medications she denies any suicidal intent wishes or thoughts she is mostly frustrated over her insomnia. Departure - Departure Time of Disposition: 19:26 Disposition: Home, Self-Care 01 Clinical Impression: Altered level of consciousness, Insomnia - Discharge Information Referrals: PCP,None [Primary Care Provider] - Forms: ED Department Discharge Additional Instructions: Return to the emergency room with any questions problems or worsening symptoms. Follow-up with Deandra Schaeffer this next week. Discuss your medications and your insomnia. You not can feel well until you start sleeping normally. I am concerned that t he Ativan and or the Xanax taken during the day may be interfering with getting healthy nighttime sleep. But without knowing for sure what you are taking because your meds come out of the med set I cannot make adjustments at this time. Sepsis Event Note (ED) - Evaluation Sepsis Screening Result: No Definite Risk - Focused Exam Vital Signs: Vital Signs Temp Pulse Resp BP Pulse Ox 08/10/20 14:02 36.2 C 65 18 113/91 H 100 - My Orders Last 24 Hours: My Active Orders 08/10/20 14:17 EKG 12 Lead [EK] Stat 08/10/20 14:18 EKG Documentation Completion [RC] ASDIRECTED 08/10/20 18:06 CULTURE URINE [RM] Stat - Assessment/Plan Last 24 Hours: My Active Orders 08/10/20 14:17 EKG 12 Lead [EK] Stat 08/10/20 14:18 EKG Documentation Completion [RC] ASDIRECTED 08/10/20 18:06 CULTURE URINE [RM] Stat
[2020-08-10 16:02] LABS: ACETAMINOPHEN 0 ug/mL (10-30)
== END 2020-08-10 20:03 | disposition home or self-care (01) ==
LOC: JD.ED 13:58
DX: R41.82 Altered mental status, unspecified (principal); G47.00 Insomnia, unspecified; M19.90 Unspecified osteoarthritis, unspecified site; E11.42 Type 2 diabetes mellitus with diabetic polyneuropathy; F41.9 Anxiety disorder, unspecified; F32.9 Major depressive disorder, single episode, unspecified; F17.210 Nicotine dependence, cigarettes, uncomplicated; Z88.6 Allergy status to analgesic agent; Z88.8 Allergy status to other drugs, medicaments and biological substances; Z88.5 Allergy status to narcotic agent; Z88.2 Allergy status to sulfonamides; Z79.84 Long term (current) use of oral hypoglycemic drugs; Z79.899 Other long term (current) drug therapy
CPT/HCPCS: 36415; 80053; 80306; 80307; 81001; 84443; 84484; 85610; 87086; 87088; 93005; 96374; 99285; J2310

== ENCOUNTER 2020-11-08 15:46 | Emergency (ER) | payer MEDICARE, OTHER ==
[2020-11-08 16:04] VITALS: PULSE 79
[2020-11-08] MEDS ORDERED: Sodium Chloride 0.9% 10 ML Syringe FLUSH PRN (16:05)
[2020-11-08] MEDS ORDERED: Ondansetron 4 MG/2 ML SDV IVPUSH ONE (16:05)
[2020-11-08] MEDS ORDERED: Sodium Chloride 0.9% 1,000 ML IV SCH (16:15)
--- NOTE | 2020-11-08 16:24 | EDM.PDOC ---
ED HPI GENERAL MEDICAL PROBLEM - General Chief Complaint: Diabetic Complaint Stated Complaint: HIGH BLOOD SUGAR Time Seen by Provider: 11/08/20 15:55 Source of Information: Reports: Patient, RN Notes Reviewed History Limitations: Reports: No Limitations - History of Present Illness INITIAL COMMENTS - FREE TEXT/NARRATIVE: Patient is a 65-year-old female who presents to the ED for the evaluation of her elevated blood sugars. Patient notes this has been present for about 1 week, she does have a continuous glucose monitor. She notes that the highest blood sugar she noted today was 432. She is complaining of ongoing nausea/vomiting for about 1 week, small amounts of loose stools. She takes Lantus at night so she has not taken any insulin today. She is a type II diabetic and on multiple different medications. Patient notes she has not had any known sick contacts, but did have to go to [facility] for some groceries prior to her symptoms starting. The patient is also complaining of generalized body aches, headache, she has not had any fevers at home, and she is afebrile at time of triage and 97.2 F. Pulse is 79, respiratory rate of 22, blood pressure is low at 86/67, O2 sats 98% on room air. Headache Pain Score (Numeric/FACES): 8 - Related Data Allergies Allergy/AdvReac Type Severity Reaction Status Date / Time butorphanol tartrate Allergy Mild Hives Verified 11/08/20 16:01 [From Stadol] ketorolac Allergy Mild Itching Verified 11/08/20 16:01 meperidine HCl [From Demerol] Allergy Mild Hives Verified 11/08/20 16:01 propoxyphene HCl Allergy Mild Hives Verified 11/08/20 16:01 [From Darvon] propoxyphene napsylate Allergy Mild Hives Verified 11/08/20 16:01 [From Darvocet-N] codeine Allergy Hives Verified 11/08/20 16:01 sulfacetamide Allergy Hives Verified 11/08/20 16:01 Home Meds: Home Meds Cholecalciferol (Vitamin D3) [Vitamin D3] 2,000 unit PO DAILY 04/02/14 [History] traMADol [Ultram] 50 mg PO Q6HR PRN 04/02/14 [History] Albuterol Sulfate [Proair Respiclick] 2 puff INH Q6H PRN 05/13/15 [History] Alum Hydrox/Mag Hydrox/Simeth [Maalox Advanced] 30 mg PO Q4H PRN 05/13/15 [History] Benzonatate 200 mg PO Q8H PRN 05/13/15 [History] Cyanocobalamin (Vitamin B-12) [Vitamin B-12] 1,000 mcg PO DAILY 05/13/15 [History] LORazepam [Ativan] 0.5 mg PO BID PRN 05/13/15 [History] Melatonin 5 - 10 mg PO BEDTIME 05/13/15 [History] Thiamine HCl [Vitamin B-1] 250 mg PO DAILY 05/13/15 [History] Topiramate 25 mg PO BID 05/13/15 [History] busPIRone [Buspar] 5 mg PO TID 05/13/15 [History] traZODone 100 mg PO DAILY 05/13/15 [History] Diclofenac Sodium [Voltaren] 4 gram TOP BID PRN 03/15/18 [History] Ferrous Sulfate, Dried [Iron] 142 mg PO DAILY 03/15/18 [History] Gabapentin [Neurontin] 600 mg PO Q12HR 03/15/18 [History] Metoclopramide HCl [Reglan] 10 mg PO DAILY PRN 03/15/18 [History] Multivitamin [Multivitamins] 1 tab PO DAILY 03/15/18 [History] Omeprazole Magnesium [Prilosec Otc] 20 mg PO DAILY 03/15/18 [History] SUMAtriptan succinate [Imitrex] 100 mg PO DAILY PRN 03/15/18 [History] SitaGLIPtin [Januvia] 100 mg PO DAILY 03/15/18 [History] ALPRAZolam [Alprazolam] 0.5 mg PO Q12HR 08/10/20 [History] Hydrocodone/Acetaminophen [Hydrocodone-Acetamin 5-325 mg] 1 each PO Q6HR 08/10/20 [History] Meloxicam 7.5 mg PO ASDIRECTED 08/10/20 [History] Simvastatin [Zocor] 10 mg PO BEDTIME 08/10/20 [History] Sucralfate [Carafate] 1 gm PO ASDIRECTED PRN 08/10/20 [History] Venlafaxine [Effexor XR] 300 mg PO DAILY 08/10/20 [History] buPROPion [buPROPion XL] 150 mg PO ASDIRECTED 08/10/20 [History] hydroCHLOROthiazide [Hydrochlorothiazide] 25 mg PO DAILY 08/10/20 [History] lamoTRIgine 100 mg PO ASDIRECTED 08/10/20 [History] metFORMIN [Glucophage] 500 mg PO BIDMEALS 08/10/20 [History] oxyCODONE HCl/Acetaminophen [Percocet 5-325 mg Tablet] 1 tab PO ASDIRECTED 08/10/20 [History] Insulin Lispro [HumaLOG] 100 unit SQ WITHMEALSANDBED #1 pen 11/08/20 [Rx] Ondansetron [Zofran ODT] 4 mg PO Q8H PRN #15 tab.dis 11/08/20 [Rx] Past Medical History HEENT History: Reports: Impaired Vision Other Respiratory History: Pt uses albuterol prn but states she has not been diagnosed with asthma Other Genitourinary History: enlarged renal artery Other DIRECTOR OF PULMONARY UNIT History: hysterectomy Musculoskeletal History: Reports: Arthritis, Fracture, Fibromyalgia, Osteoporosis Neurological History: Reports: Neuropathy, Diabetic, Neuropathy, Peripheral Other Neuro History: memory l Psychiatric History: Reports: Addiction, Anxiety, Depression, Panic Attack Other Psychiatric History: past narcotic addiction Endocrine/Metabolic History: Reports: Diabetes, Type II Hematologic History: Reports: Anemia Oncologic (Cancer) History: Reports: Renal Other Dermatologic History: dermatitis - Infectious Disease History Infectious Disease History: Reports: Chicken Pox - Past Surgical History HEENT Surgical History: Reports: Tonsillectomy GI Surgical History: Reports: Appendectomy, Bariatric Procedure, Cholecystectomy, Colonoscopy, Other (See Below) Other GI Surgeries/Procedures: 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 Female Surgical History: Reports: Hysterectomy, Nephrectomy Other Female Surgeries/Procedures: Right nephrectomy due to cancer Other Musculoskeletal Surgeries/Procedures:: Knee surgery, left wrist surgery Social & Family History - Family History Family Medical History: No Pertinent Family History - Tobacco Use Tobacco Use Status *Q: Current Every Day Tobacco User Years of Tobacco use: 52 Packs/Tins Daily: 0.2 - Caffeine Use Caffeine Use: Reports: Coffee, Energy Drinks, Soda, Tea - Recreational Drug Use Recreational Drug Use: Yes Recreational Drug Type: Reports: Marijuana/Hashish Other Recreational Drug Type: medical card for marijuana Recreational Drug Use Frequency: Daily ED ROS GENERAL - Review of Systems Review Of Systems: Comprehensive ROS is negative, except as noted in HPI. ED EXAM GENERAL NO PERIP PULSE - Physical Exam Exam: See Below Exam Limited By: No Limitations General Appearance: Alert, WD/WN, No Apparent Distress Respiratory/Chest: No Respiratory Distress, Lungs Clear, Normal Breath Sounds, No Accessory Muscle Use, Chest Non-Tender Cardiovascular: Normal Peripheral Pulses, Regular Rate, Rhythm, No Edema, No Murmur GI/Abdominal: Normal Bowel Sounds, Soft, Non-Tender, No Distention, No Mass Extremities: Normal Inspection, Normal Capillary Refill Neurological: Alert, Oriented, Normal Cognition, No Motor/Sensory Deficits Psychiatric: Normal Affect, Normal Mood Skin Exam: Warm, Dry, Intact, Normal Color, No Rash #1 Interpretation EKG Date: 11/08/20 Time: 17:06 Rhythm: NSR Rate (Beats/Min): 64 Velpen: Normal P-Wave: Present QRS: Normal ST-T: Other (minimal in anterior leads) QT: Normal Comparison: No Change (compared from EKG on 08/10/2020) EKG Interpretation Comments: EKG reviewed by myself and Dr. Evans, there is no appreciable change noted from EKG done in July 2020. She had minimal ST elevation at that time as well, Only it was in the inferior leads. However I do appreciate the same amount of elevation in the lead II and the telemetry strips that the RN would have been looking at to appreciate ST elevation. Course - Vital Signs Last Recorded V/S: Last Vital Signs Temp 97.2 F 11/08/20 15:55 Pulse 79 11/08/20 15:55 Resp 22 H 11/08/20 15:55 BP 86/67 L 11/08/20 15:55 Pulse Ox 98 11/08/20 15:55 - Orders/Labs/Meds Orders: Active Orders 24 hr Category Date Time Status Blood Glucose Check, Bedside [RC] ONETIME Care 11/08/20 20:20 Active Cardiac Monitoring [RC] CONTINUOUS Care 11/08/20 16:05 Active Communication Order [RC] STAT Care 11/08/20 16:05 Active EKG Documentation Completion [RC] STAT Care 11/08/20 16:56 Active POC Glucose [Blood Glucose Check, Bedside] [RC] ONETIME Care 11/08/20 15:55 Active POC Glucose [Blood Glucose Check, Bedside] [] ONETIME Care 11/08/20 17:45 Ordered POC Glucose [Blood Glucose Check, Bedside] [] ONETIME Care 11/08/20 20:10 Ordered POC Glucose [Blood Glucose Check, Bedside] [RC] ONETIME Care 11/08/20 21:31 Ordered Peripheral IV Care [] . DIRECTED Care 11/08/20 16:05 Active CULTURE BLOOD [BC] Stat Lab 11/08/20 16:30 Received CULTURE BLOOD [BC] Stat Lab 11/08/20 16:38 Received Sodium Chloride 0.9% [Normal Saline] 1,000 ml Med 11/08/20 16:15 Active IV ASDIRECTED Sodium Chloride 0.9% [Saline Flush] Med 11/08/20 16:05 Active 10 ml FLUSH ASDIRECTED PRN Blood Culture x2 Reflex Set [OM.PC] Stat Oth 11/08/20 16:05 Ordered Peripheral IV Insertion Adult [OM.PC] Stat Oth 11/08/20 16:05 Ordered Medication Orders Sodium Chloride (Normal Saline) 1,000 mls @ 999 mls/hr IV ASDIRECTED NAIMA Last Admin: 11/08/20 16:44 Dose: 999 mls/hr Documented by: OBIE Sodium Chloride (Saline Flush) 10 ml FLUSH ASDIRECTED PRN PRN Reason: Keep Vein Open Last Admin: 11/08/20 16:02 Dose: 10 ml Documented by: OBIE Labs: Laboratory Tests 11/08/20 11/08/20 11/08/20 Range/Units 16:01 16:01 16:01 WBC 9.92 (3.98-10.04) K/mm3 RBC 4.36 (3.98-5.22) M/mm3 Hgb 13.9 D (11.2-15.7) gm/dl Hct 42.7 (34.1-44.9) % MCV 97.9 H (79.4-94.8) fl MCH 31.9 (25.6-32.2) pg MCHC 32.6 (32.2-35.5) g/dl RDW Std Deviation 44.6 (36.4-46.3) fL Plt Count 273 D (182-369) K/mm3 MPV 12.0 (9.4-12.3) fl Neut % (Auto) 69.1 (34.0-71.1) % Lymph % (Auto) 20.9 (19.3-51.7) % [place] % (Auto) 8.9 (4.7-12.5) % Eos % (Auto) 0.7 (0.7-5.8) Baso % (Auto) 0.2 (0.1-1.2) % Neut # (Auto) 6.86 H (1.56-6.13) K/mm3 Lymph # (Auto) 2.07 (1.18-3.74) K/mm3 [place]son # (Auto) 0.88 H (0.24-0.36) K/mm3 Eos # (Auto) 0.07 (0.04-0.36) K/mm3 Baso # (Auto) 0.02 (0.01-0.08) K/mm3 D-Dimer, Quantitative (0.19-0.50) mg/L VBG pH (7.30-7.40) Sodium 129 L (136-145) mEq/L Potassium 3.8 (3.5-5.1) mEq/L Chloride 93 L (98-107) mEq/L Carbon Dioxide 28 (21-32) mEq/L Anion Gap 11.8 (5-15) BUN 17 (7-18) mg/dL Creatinine 1.5 H (0.55-1.02) mg/dL Est Cr Clr Drug Dosing 31.61 mL/min Estimated GFR (MDRD) 35 (>60) mL/min BUN/Creatinine Ratio 11.3 L (14-18) Glucose 542 H (80-115) mg/dL POC Glucose (80-115) mg/dL Serum Osmolality 307 H (280-300) mosm/kg Lactic Acid (0.4-2.0) mmol/L Calcium 9.3 (8.5-10.1) mg/dL Phosphorus 3.8 (2.6-4.7) mg/dL Magnesium 1.7 L (1.8-2.4) mg/dl Ferritin (8-252) ng/ml Total Bilirubin 0.4 (0.2-1.0) mg/dL AST 16 (15-37) U/L ALT 22 (14-59) U/L Alkaline Phosphatase 145 H (46-116) U/L Troponin I (0.00-0.056) ng/mL C-Reactive Protein 0.2 (<1.0) mg/dL Total Protein 7.2 (6.4-8.2) g/dl Albumin 3.5 (3.4-5.0) g/dl Globulin 3.7 gm/dL Albumin/Globulin Ratio 1.0 (1-2) Urine Color (Yellow) Urine Appearance (Clear) Urine pH (5.0-8.0) Ur Specific [place] (1.005-1.030) Urine Protein (Negative) Urine Glucose (UA) (Negative) Urine Ketones (Negative) Urine Occult Blood (Negative) Urine Nitrite (Negative) Urine Bilirubin (Negative) Urine Urobilinogen (0.2-1.0) Ur Leukocyte Esterase (Negative) Urine RBC (0-5) /hpf Urine WBC (0-5) /hpf Ur Squamous Epith Cells (0-5) /hpf Urine Bacteria (FEW) /hpf Urine Mucus (FEW) /hpf Ketones 0.02 (0.0-0.3) mM Influenza Type A RNA (NEGATIVE) Influenza Type B RNA (NEGATIVE) SARS-CoV-2 RNA (LIANET) (NEGATIVE) 11/08/20 11/08/20 11/08/20 Range/Units 16:01 16:01 16:15 WBC (3.98-10.04) K/mm3 RBC (3.98-5.22) M/mm3 Hgb (11.2-15.7) gm/dl Hct (34.1-44.9) % MCV (79.4-94.8) fl MCH (25.6-32.2) pg MCHC (32.2-35.5) g/dl RDW Std Deviation (36.4-46.3) fL Plt Count (182-369) K/mm3 MPV (9.4-12.3) fl Neut % (Auto) (34.0-71.1) % Lymph % (Auto) (19.3-51.7) % Anson % (Auto) (4.7-12.5) % Eos % (Auto) (0.7-5.8) Baso % (Auto) (0.1-1.2) % Neut # (Auto) (1.56-6.13) K/mm3 Lymph # (Auto) (1.18-3.74) K/mm3 Anson # (Auto) (0.24-0.36) K/mm3 Eos # (Auto) (0.04-0.36) K/mm3 Baso # (Auto) (0.01-0.08) K/mm3 D-Dimer, Quantitative 1.13 H (0.19-0.50) mg/L VBG pH (7.30-7.40) Sodium (136-145) mEq/L Potassium (3.5-5.1) mEq/L Chloride (98-107) mEq/L Carbon Dioxide (21-32) mEq/L Anion Gap (5-15) BUN (7-18) mg/dL Creatinine (0.55-1.02) mg/dL Est Cr Clr Drug Dosing mL/min Estimated GFR (MDRD) (>60) mL/min BUN/Creatinine Ratio (14-18) Glucose (80-115) mg/dL POC Glucose (80-115) mg/dL Serum Osmolality (280-300) mosm/kg Lactic Acid (0.4-2.0) mmol/L Calcium (8.5-10.1) mg/dL Phosphorus (2.6-4.7) mg/dL Magnesium (1.8-2.4) mg/dl Ferritin 80 (8-252) ng/ml Total Bilirubin (0.2-1.0) mg/dL AST (15-37) U/L ALT (14-59) U/L Alkaline Phosphatase (46-116) U/L Troponin I (0.00-0.056) ng/mL C-Reactive Protein (<1.0) mg/dL Total Protein (6.4-8.2) g/dl Albumin (3.4-5.0) g/dl Globulin gm/dL Albumin/Globulin Ratio (1-2) Urine Color (Yellow) Urine Appearance (Clear) Urine pH (5.0-8.0) Ur Specific [place] (1.005-1.030) Urine Protein (Negative) Urine Glucose (UA) (Negative) Urine Ketones (Negative) Urine Occult Blood (Negative) Urine Nitrite (Negative) Urine Bilirubin (Negative) Urine Urobilinogen (0.2-1.0) Ur Leukocyte Esterase (Negative) Urine RBC (0-5) /hpf Urine WBC (0-5) /hpf Ur Squamous Epith Cells (0-5) /hpf Urine Bacteria (FEW) /hpf Urine Mucus (FEW) /hpf Ketones (0.0-0.3) mM Influenza Type A RNA Negative (NEGATIVE) Influenza Type B RNA Negative (NEGATIVE) SARS-CoV-2 RNA (LIANET) Negative (NEGATIVE) 11/08/20 11/08/20 11/08/20 Range/Units 16:21 16:30 16:30 WBC (3.98-10.04) K/mm3 RBC (3.98-5.22) M/mm3 Hgb (11.2-15.7) gm/dl Hct (34.1-44.9) % MCV (79.4-94.8) fl MCH (25.6-32.2) pg MCHC (32.2-35.5) g/dl RDW Std Deviation (36.4-46.3) fL Plt Count (182-369) K/mm3 MPV (9.4-12.3) fl Neut % (Auto) (34.0-71.1) % Lymph % (Auto) (19.3-51.7) % Anson % (Auto) (4.7-12.5) % Eos % (Auto) (0.7-5.8) Baso % (Auto) (0.1-1.2) % Neut # (Auto) (1.56-6.13) K/mm3 Lymph # (Auto) (1.18-3.74) K/mm3 Anson # (Auto) (0.24-0.36) K/mm3 Eos # (Auto) (0.04-0.36) K/mm3 Baso # (Auto) (0.01-0.08) K/mm3 D-Dimer, Quantitative (0.19-0.50) mg/L VBG pH 7.35 (7.30-7.40) Sodium (136-145) mEq/L Potassium (3.5-5.1) mEq/L Chloride (98-107) mEq/L Carbon Dioxide (21-32) mEq/L Anion Gap (5-15) BUN (7-18) mg/dL Creatinine (0.55-1.02) mg/dL Est Cr Clr Drug Dosing mL/min Estimated GFR (MDRD) (>60) mL/min BUN/Creatinine Ratio (14-18) Glucose (80-115) mg/dL POC Glucose (80-115) mg/dL Serum Osmolality (280-300) mosm/kg Lactic Acid 1.7 (0.4-2.0) mmol/L Calcium (8.5-10.1) mg/dL Phosphorus (2.6-4.7) mg/dL Magnesium (1.8-2.4) mg/dl Ferritin (8-252) ng/ml Total Bilirubin (0.2-1.0) mg/dL AST (15-37) U/L ALT (14-59) U/L Alkaline Phosphatase (46-116) U/L Troponin I < 0.017 (0.00-0.056) ng/mL C-Reactive Protein (<1.0) mg/dL Total Protein (6.4-8.2) g/dl Albumin (3.4-5.0) g/dl Globulin gm/dL Albumin/Globulin Ratio (1-2) Urine Color (Yellow) Urine Appearance (Clear) Urine pH (5.0-8.0) Ur Specific [place] (1.005-1.030) Urine Protein (Negative) Urine Glucose (UA) (Negative) Urine Ketones (Negative) Urine Occult Blood (Negative) Urine Nitrite (Negative) Urine Bilirubin (Negative) Urine Urobilinogen (0.2-1.0) Ur Leukocyte Esterase (Negative) Urine RBC (0-5) /hpf Urine WBC (0-5) /hpf Ur Squamous Epith Cells (0-5) /hpf Urine Bacteria (FEW) /hpf Urine Mucus (FEW) /hpf Ketones (0.0-0.3) mM Influenza Type A RNA (NEGATIVE) Influenza Type B RNA (NEGATIVE) SARS-CoV-2 RNA (LIANET) (NEGATIVE) 11/08/20 11/08/20 11/08/20 Range/Units 18:35 19:35 20:22 WBC (3.98-10.04) K/mm3 RBC (3.98-5.22) M/mm3 Hgb (11.2-15.7) gm/dl Hct (34.1-44.9) % MCV (79.4-94.8) fl MCH (25.6-32.2) pg MCHC (32.2-35.5) g/dl RDW Std Deviation (36.4-46.3) fL Plt Count (182-369) K/mm3 MPV (9.4-12.3) fl Neut % (Auto) (34.0-71.1) % Lymph % (Auto) (19.3-51.7) % [place] % (Auto) (4.7-12.5) % Eos % (Auto) (0.7-5.8) Baso % (Auto) (0.1-1.2) % Neut # (Auto) (1.56-6.13) K/mm3 Lymph # (Auto) (1.18-3.74) K/mm3 [place] # (Auto) (0.24-0.36) K/mm3 Eos # (Auto) (0.04-0.36) K/mm3 Baso # (Auto) (0.01-0.08) K/mm3 D-Dimer, Quantitative (0.19-0.50) mg/L VBG pH (7.30-7.40) Sodium 132 L (136-145) mEq/L Potassium 3.9 (3.5-5.1) mEq/L Chloride 98 (98-107) mEq/L Carbon Dioxide 27 (21-32) mEq/L Anion Gap 10.9 (5-15) BUN 13 (7-18) mg/dL Creatinine 1.2 H (0.55-1.02) mg/dL Est Cr Clr Drug Dosing 39.51 mL/min Estimated GFR (MDRD) 45 (>60) mL/min BUN/Creatinine Ratio 10.8 L (14-18) Glucose 447 H (80-115) mg/dL POC Glucose 387 H (80-115) mg/dL Serum Osmolality (280-300) mosm/kg Lactic Acid (0.4-2.0) mmol/L Calcium 8.5 (8.5-10.1) mg/dL Phosphorus (2.6-4.7) mg/dL Magnesium (1.8-2.4) mg/dl Ferritin (8-252) ng/ml Total Bilirubin (0.2-1.0) mg/dL AST (15-37) U/L ALT (14-59) U/L Alkaline Phosphatase (46-116) U/L Troponin I (0.00-0.056) ng/mL C-Reactive Protein (<1.0) mg/dL Total Protein (6.4-8.2) g/dl Albumin (3.4-5.0) g/dl Globulin gm/dL Albumin/Globulin Ratio (1-2) Urine Color Yellow (Yellow) Urine Appearance Clear (Clear) Urine pH 7.0 (5.0-8.0) Ur Specific [place] 1.015 (1.005-1.030) Urine Protein Negative (Negative) Urine Glucose (UA) 2+ H (Negative) Urine Ketones Negative (Negative) Urine Occult Blood Negative (Negative) Urine Nitrite Negative (Negative) Urine Bilirubin Negative (Negative) Urine Urobilinogen 0.2 (0.2-1.0) Ur Leukocyte Esterase Negative (Negative) Urine RBC 0-5 (0-5) /hpf Urine WBC 0-5 (0-5) /hpf Ur Squamous Epith Cells 0-5 (0-5) /hpf Urine Bacteria Few (FEW) /hpf Urine Mucus Not seen (FEW) /hpf Ketones (0.0-0.3) mM Influenza Type A RNA (NEGATIVE) Influenza Type B RNA (NEGATIVE) SARS-CoV-2 RNA (LIANET) (NEGATIVE) 11/08/20 Range/Units 21:26 WBC (3.98-10.04) K/mm3 RBC (3.98-5.22) M/mm3 Hgb (11.2-15.7) gm/dl Hct (34.1-44.9) % MCV (79.4-94.8) fl MCH (25.6-32.2) pg MCHC (32.2-35.5) g/dl RDW Std Deviation (36.4-46.3) fL Plt Count (182-369) K/mm3 MPV (9.4-12.3) fl Neut % (Auto) (34.0-71.1) % Lymph % (Auto) (19.3-51.7) % [place] % (Auto) (4.7-12.5) % Eos % (Auto) (0.7-5.8) Baso % (Auto) (0.1-1.2) % Neut # (Auto) (1.56-6.13) K/mm3 Lymph # (Auto) (1.18-3.74) K/mm3 [place] # (Auto) (0.24-0.36) K/mm3 Eos # (Auto) (0.04-0.36) K/mm3 Baso # (Auto) (0.01-0.08) K/mm3 D-Dimer, Quantitative (0.19-0.50) mg/L VBG pH (7.30-7.40) Sodium (136-145) mEq/L Potassium (3.5-5.1) mEq/L Chloride (98-107) mEq/L Carbon Dioxide (21-32) mEq/L Anion Gap (5-15) BUN (7-18) mg/dL Creatinine (0.55-1.02) mg/dL Est Cr Clr Drug Dosing mL/min Estimated GFR (MDRD) (>60) mL/min BUN/Creatinine Ratio (14-18) Glucose (80-115) mg/dL POC Glucose 247 H (80-115) mg/dL Serum Osmolality (280-300) mosm/kg Lactic Acid (0.4-2.0) mmol/L Calcium (8.5-10.1) mg/dL Phosphorus (2.6-4.7) mg/dL Magnesium (1.8-2.4) mg/dl Ferritin (8-252) ng/ml Total Bilirubin (0.2-1.0) mg/dL AST (15-37) U/L ALT (14-59) U/L Alkaline Phosphatase (46-116) U/L Troponin I (0.00-0.056) ng/mL C-Reactive Protein (<1.0) mg/dL Total Protein (6.4-8.2) g/dl Albumin (3.4-5.0) g/dl Globulin gm/dL Albumin/Globulin Ratio (1-2) Urine Color (Yellow) Urine Appearance (Clear) Urine pH (5.0-8.0) Ur Specific [place] (1.005-1.030) Urine Protein (Negative) Urine Glucose (UA) (Negative) Urine Ketones (Negative) Urine Occult Blood (Negative) Urine Nitrite (Negative) Urine Bilirubin (Negative) Urine Urobilinogen (0.2-1.0) Ur Leukocyte Esterase (Negative) Urine RBC (0-5) /hpf Urine WBC (0-5) /hpf Ur Squamous Epith Cells (0-5) /hpf Urine Bacteria (FEW) /hpf Urine Mucus (FEW) /hpf Ketones (0.0-0.3) mM Influenza Type A RNA (NEGATIVE) Influenza Type B RNA (NEGATIVE) SARS-CoV-2 RNA (LIANET) (NEGATIVE) Meds: Medications Generic Name Dose Route Start Last Admin Trade Name Freq PRN Reason Stop Dose Admin Sodium Chloride 1,000 mls @ 999 mls/hr 11/08/20 16:15 11/08/20 16:44 Normal Saline IV 999 mls/hr ASDIRECTED NAIMA Administration Sodium Chloride 10 ml 11/08/20 16:05 11/08/20 16:02 Saline Flush FLUSH 10 ml ASDIRECTED PRN Administration Keep Vein Open Discontinued Medications Generic Name Dose Route Start Last Admin Trade Name Freq PRN Reason Stop Dose Admin Sodium Chloride 1,000 mls @ 999 mls/hr 11/08/20 17:14 11/08/20 18:00 Normal Saline IV 11/08/20 18:14 999 mls/hr ONETIME ONE Administration Insulin Human Isoph/Insulin Regular 10 units 11/09/20 19:08 Humulin 70-30 SUBCUT 11/09/20 19:09 ONETIME ONE Insulin Human Regular 10 unit 11/09/20 19:17 Humulin R SUBCUT 11/09/20 19:18 ONETIME ONE Insulin Human Regular 10 unit 11/08/20 19:17 11/08/20 19:22 Humulin R SUBCUT 11/08/20 19:18 10 unit ONETIME ONE Administration Insulin Human Regular 10 unit 11/08/20 20:24 11/08/20 20:32 Humulin R SUBCUT 11/08/20 20:25 10 unit ONETIME ONE Administration Ondansetron HCl 4 mg 11/08/20 16:05 11/08/20 16:40 Zofran IVPUSH 11/08/20 16:06 4 mg ONETIME ONE Administration - Re-Assessments/Exams Free Text/Narrative Re-Assessment/Exam: 11/08/20 16:23 Patient presents to the ED for her elevated blood sugars, it was over 400 at the time of triage. Labs have been ordered for further evaluation, fluids have been ordered, Zofran, also COVID-19/influenza swab for further evaluation. 11/08/20 17:19 The patient's blood pressure has improved to 125/88. O2 sats are 94% on room air, Covid screen, flu screen were both negative at today's visit. Chest x-ray demonstrates no focal abnormalities that would be suggestive of Covid infection. D-dimer is elevated at 1.17. EKG was done by nursing staff as she appreciated some slight ST elevation on the telemetry leads. Review of her EKG done today and compared with one done in July 2020 discerns no change, she had the same amount elevation in lead II on both EKGs. 11/08/20 17:21 I did call lab as it was taking an extended amount of time to get her metabolic panel back, they state that her blood sugar was 542. At this time we will keep giving her fluids, and check her blood sugars after we have given her some fluids, and then entertain the thought of insulin if needed. 11/08/20 20:25 Patient's blood sugar was down to 387 after the 10 units of insulin. Urine is not suggestive of any infection. We will give her another 10 units and recheck her blood sugar an hour after that. Plan is to send her home with a Humalog pen, with sliding scale, have her blood sugar checked 4 times a day at least, watch her carbs over the holiday season and follow-up with her regular provider on Friday. 11/08/20 21:30 The patient's blood sugar is down to 247. We will have her go home, monitor her symptoms fill the insulin pen tomorrow along with some Zofran for nausea management, and check in with Deandra Schaeffer for close follow-up hopefully Friday. 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 Thorough lab evaluation was completed, and a Covid test was done at today's visit, and everything was negative. You could have a viral illness causing you to have some nausea and vomiting and generalized feelings of being unwell. And this may cause your blood sugars to elevate. You were given IV fluids, and subcutaneous insulin while in the ER, and your blood sugar did decrease to 247. You were given a insulin pen, on a low-dose sliding scale, please pick this up at your pharmacy tomorrow and take as directed per the sliding scale recommendations. You were also given a prescription for Zofran, for nausea, please use as directed. It is highly recommended that you follow-up with your regular provider, tomorrow morning and tell her you were seen in the ER for your elevated blood sugars and started with a insulin pen, so she can get a close follow-up appointment scheduled for you. Over the next few days you will need to do blood sugars 4 times a day, and keep these written down in a journal, to make sure that you are getting adequate blood sugar control. I recommend that you increase your oral fluid hydration as well over the next few days, and try to watch your carbohydrate intake as much as possible. I know this will be difficult due to the holidays but do the best that you can. Please do not hesitate to return to the ER if symptoms change or worsen. Sepsis Event Note (ED) - Evaluation Sepsis Screening Result: No Definite Risk - Focused Exam Vital Signs: Vital Signs Temp Pulse Resp BP Pulse Ox 11/08/20 15:55 97.2 F 79 22 H 86/67 L 98 - My Orders Last 24 Hours: My Active Orders 11/08/20 15:55 POC Glucose [Blood Glucose Check, Bedside] [RC] ONETIME 11/08/20 16:05 Cardiac Monitoring [RC] CONTINUOUS Communication Order [RC] STAT Peripheral IV Care [RC] . DIRECTED Sodium Chloride 0.9% [Saline Flush] 10 ml FLUSH ASDIRECTED PRN Blood Culture x2 Reflex Set [OM.PC] Stat Peripheral IV Insertion Adult [OM.PC] Stat 11/08/20 16:15 Sodium Chloride 0.9% [Normal Saline] 1,000 ml IV ASDIRECTED 11/08/20 16:30 CULTURE BLOOD [BC] Stat 11/08/20 16:38 CULTURE BLOOD [BC] Stat 11/08/20 16:56 EKG Documentation Completion [RC] STAT 11/08/20 17:45 POC Glucose [Blood Glucose Check, Bedside] [RC] ONETIME 11/08/20 20:10 POC Glucose [Blood Glucose Check, Bedside] [RC] ONETIME 11/08/20 20:20 Blood Glucose Check, Bedside [RC] ONETIME 11/08/20 21:31 POC Glucose [Blood Glucose Check, Bedside] [RC] ONETIME - Assessment/Plan Last 24 Hours: My Active Orders 11/08/20 15:55 POC Glucose [Blood Glucose Check, Bedside] [RC] ONETIME 11/08/20 16:05 Cardiac Monitoring [RC] CONTINUOUS Communication Order [RC] STAT Peripheral IV Care [RC] . DIRECTED Sodium Chloride 0.9% [Saline Flush] 10 ml FLUSH ASDIRECTED PRN Blood Culture x2 Reflex Set [OM.PC] Stat Peripheral IV Insertion Adult [OM.PC] Stat 11/08/20 16:15 Sodium Chloride 0.9% [Normal Saline] 1,000 ml IV ASDIRECTED 11/08/20 16:30 CULTURE BLOOD [BC] Stat 11/08/20 16:38 CULTURE BLOOD [BC] Stat 11/08/20 16:56 EKG Documentation Completion [RC] STAT 11/08/20 17:45 POC Glucose [Blood Glucose Check, Bedside] [RC] ONETIME 11/08/20 20:10 POC Glucose [Blood Glucose Check, Bedside] [RC] ONETIME 11/08/20 20:20 Blood Glucose Check, Bedside [RC] ONETIME 11/08/20 21:31 POC Glucose [Blood Glucose Check, Bedside] [RC] ONETIME
[2020-11-08 16:57] LABS: CORONAVIRUS COVID-19 NAA NEGATIVE (NEGATIVE)
[2020-11-08] MEDS ORDERED: Sodium Chloride 0.9% 1,000 ML IV ONE (17:14)
--- NOTE | 2020-11-08 17:22 | CR ---
Chest: Portable view of the chest was obtained. Comparison: Prior chest x-ray of 10/11/16. Findings: Heart size and mediastinum are within normal limits. Nodules are noted within the left and right lung base compatible with nipple densities. No acute parenchymal change is appreciated. Bony structures are grossly intact. Surgical clips are seen within the left upper abdomen. Impression: 1. Nothing acute is appreciated on portable chest x-ray. Diagnostic code #2
[2020-11-08] MEDS ORDERED: Insulin Regular, Human 100 Units/ML 3 ML Vial SUBCUT ONE ×2 (19:17→20:24)
[2020-11-08 22:15] VITALS: BP 121/91
[2020-11-09] MEDS ORDERED: Insulin NPH/Insulin Regular,Human 70-30 100 Units/ML 10 ML Vial SUBCUT ONE (19:08)
[2020-11-09] MEDS ORDERED: Insulin Regular, Human 100 Units/ML 3 ML Vial SUBCUT ONE (19:17)
== END 2020-11-08 21:50 | disposition home or self-care (01) ==
LOC: JD.ED 15:46
DX: E11.65 Type 2 diabetes mellitus with hyperglycemia (principal); E11.42 Type 2 diabetes mellitus with diabetic polyneuropathy; F41.9 Anxiety disorder, unspecified; F32.9 Major depressive disorder, single episode, unspecified; M19.90 Unspecified osteoarthritis, unspecified site; Z88.8 Allergy status to other drugs, medicaments and biological substances; Z88.6 Allergy status to analgesic agent; Z88.5 Allergy status to narcotic agent; Z88.2 Allergy status to sulfonamides; Z79.899 Other long term (current) drug therapy; Z79.84 Long term (current) use of oral hypoglycemic drugs
CPT/HCPCS: 0240U; 36415; 71045; 80048; 80053; 81001; 82009; 82728; 82800; 82962; 83605; 83735; 83930; 84100; 84484; 85025; 85379; 86140; 87040; 93005; 96374; 99284; J1815; J2405; J7030; 93010

== ENCOUNTER 2021-12-04 14:43 | Emergency (ER) | payer MEDICARE, OTHER ==
[2021-12-04] MEDS ORDERED: Acetaminophen/HYDROcodone 325-5 MG Tab PO ONE (16:17)
[2021-12-04 18:02] VITALS: BP 143/87; PULSE 66
== END 2021-12-04 18:05 | disposition home or self-care (01) ==
LOC: JD.ED 14:43
DX: S39.012A Strain of muscle, fascia and tendon of lower back, initial encounter (principal); S30.0XXA Contusion of lower back and pelvis, initial encounter; E11.9 Type 2 diabetes mellitus without complications; Z88.5 Allergy status to narcotic agent; Z88.6 Allergy status to analgesic agent; Z88.8 Allergy status to other drugs, medicaments and biological substances; Z88.2 Allergy status to sulfonamides; Z79.899 Other long term (current) drug therapy; Z79.84 Long term (current) use of oral hypoglycemic drugs; W18.30XA Fall on same level, unspecified, initial encounter
CPT/HCPCS: 72100; 72170; 72220; 99283; A9270; 99284

== ENCOUNTER 2021-12-20 11:04 | Emergency (ER) | payer MEDICARE ==
[2021-12-20 12:22] VITALS: BP 154/91; PULSE 85
[2021-12-20] MEDS ORDERED: HYDROmorphone 1 MG/ML Syringe IM ONE (12:44)
[2021-12-20] MEDS ORDERED: Acetaminophen/oxyCODONE 325-5 MG Tab PO ONE (16:57)
== END 2021-12-20 17:35 | disposition home or self-care (01) ==
LOC: JD.ED 11:04
DX: M25.552 Pain in left hip (principal); E11.42 Type 2 diabetes mellitus with diabetic polyneuropathy; Z72.0 Tobacco use; Z88.5 Allergy status to narcotic agent; Z88.6 Allergy status to analgesic agent; Z88.8 Allergy status to other drugs, medicaments and biological substances; Z79.899 Other long term (current) drug therapy; Z79.4 Long term (current) use of insulin
CPT/HCPCS: 73502; 73552; 73700; 96372; 99284; A9270; J1170

== ENCOUNTER 2022-05-09 14:14 | Emergency (ER) | payer MEDICARE ==
[2022-05-09] MEDS ORDERED: Metoclopramide 10 MG/2 ML SDV IVPUSH ONE (14:40)
[2022-05-09] MEDS ORDERED: Lactated Ringers 1,000 ML IV SCH ×2 (14:45→20:15)
[2022-05-09 16:13] LABS: ESTIMATED GFR 36 mL/min (>60)
[2022-05-09] MEDS ORDERED: HYDROmorphone 0.5 MG/0.5 ML Syringe IVPUSH ONE (17:12)
[2022-05-09] MEDS ORDERED: Propofol 200 MG/20 ML SDV IVPUSH ONE (18:56)
[2022-05-09] MEDS ORDERED: Midazolam 1 MG/ML 2 ML SDV IVPUSH ONE (18:58)
[2022-05-09 19:01] LABS: CORONAVIRUS COVID-19 NAA NEGATIVE (NEGATIVE)
[2022-05-09 23:27] VITALS: BP 126/82; PULSE 87
== END 2022-05-09 20:49 ==
LOC: JD.ED 14:14
DX: E11.10 Type 2 diabetes mellitus with ketoacidosis without coma (principal); E11.65 Type 2 diabetes mellitus with hyperglycemia; N28.9 Disorder of kidney and ureter, unspecified; E11.42 Type 2 diabetes mellitus with diabetic polyneuropathy; Z88.5 Allergy status to narcotic agent; Z88.2 Allergy status to sulfonamides; Z88.8 Allergy status to other drugs, medicaments and biological substances; Z79.84 Long term (current) use of oral hypoglycemic drugs; Z79.899 Other long term (current) drug therapy; Z86.16 Personal history of COVID-19; Z20.822 Contact with and (suspected) exposure to COVID-19
CPT/HCPCS: 0240U; 36415; 36556; 36600; 71045; 80053; 81001; 82009; 82803; 82947; 83605; 83690; 83735; 83880; 83930; 84100; 85007; 85027; 86140; 87040; 93005; 96361; 96374; 96375; 99152; 99153; 99285; J1170; J1815; J2250; J2704; J2765; J7120; 36410; 93010

== ENCOUNTER 2022-05-25 11:11 | Emergency (ER) | payer MEDICARE ==
[2022-05-25 11:38] VITALS: BP 91/64; PULSE 87
[2022-05-25] MEDS ORDERED: Insulin Regular, Human 100 Units/ML 3 ML Vial SUBCUT ONE (12:54)
[2022-05-25] MEDS ORDERED: Iopamidol 755 Mg/ML 100 ML Bottle IVPUSH ONE (14:24)
[2022-05-25] MEDS ORDERED: Sodium Chloride 0.9% 100 ML IV SCH (14:30)
== END 2022-05-25 21:10 | disposition home or self-care (01) ==
LOC: JD.ED 11:11
DX: G45.9 Transient cerebral ischemic attack, unspecified (principal); D64.9 Anemia, unspecified; I10 Essential (primary) hypertension; E11.42 Type 2 diabetes mellitus with diabetic polyneuropathy; Z86.73 Personal history of transient ischemic attack (TIA), and cerebral infarction without residual deficits; Z79.4 Long term (current) use of insulin; Z79.899 Other long term (current) drug therapy; Z79.82 Long term (current) use of aspirin
CPT/HCPCS: 36415; 70450; 70496; 70498; 71045; 73630; 80053; 81001; 83605; 84484; 85007; 85025; 85027; 85610; 85730; 87040; 87086; 93005; 99285; J1815; Q9967; 93010; 99284

== ENCOUNTER 2022-05-26 13:03 | Emergency (ER) | payer MEDICARE ==
[2022-05-26 14:22] VITALS: BP 117/69; PULSE 78
[2022-05-26 16:35] LABS: ESTIMATED GFR 71 mL/min (>60)
[2022-05-26] MEDS ORDERED: 50% Dextrose in Water 50 ML Syringe ONE (16:42)
[2022-05-26] MEDS ORDERED: 50% Dextrose in Water 50 ML Syringe IVPUSH ONE ×2 (16:44→16:45)
[2022-05-26] MEDS ORDERED: Dextrose 5%-Lactated Ringers 1,000 ML IV SCH ×2 (17:00→18:30)
== END 2022-05-26 19:50 | disposition home or self-care (01) ==
LOC: JD.ED 13:03
DX: E11.649 Type 2 diabetes mellitus with hypoglycemia without coma (principal); I10 Essential (primary) hypertension; E11.9 Type 2 diabetes mellitus without complications; Z86.73 Personal history of transient ischemic attack (TIA), and cerebral infarction without residual deficits; Z88.5 Allergy status to narcotic agent; Z88.6 Allergy status to analgesic agent; Z88.8 Allergy status to other drugs, medicaments and biological substances; Z79.899 Other long term (current) drug therapy; Z79.82 Long term (current) use of aspirin; Z79.4 Long term (current) use of insulin
CPT/HCPCS: 36415; 36600; 70450; 71045; 80053; 82803; 82947; 83605; 85007; 85027; 85610; 85730; 87040; 96361; 96374; 99285; J7121; 99284

== ENCOUNTER 2022-06-27 15:38 | Emergency (ER) | payer MEDICARE, OTHER ==
[2022-06-27] MEDS ORDERED: Sodium Chloride 0.9% 10 ML Syringe FLUSH PRN (16:15)
[2022-06-27] MEDS ORDERED: HYDROmorphone 0.5 MG/0.5 ML Syringe IVPUSH ONE ×3 (16:16→20:00)
[2022-06-27 16:18] VITALS: BP 166/98; PULSE 78
[2022-06-27] MEDS ORDERED: HYDROmorphone 0.5 MG/0.5 ML Syringe IM ONE (18:31)
[2022-06-27] MEDS ORDERED: Sodium Chloride 0.9% 10 ML Syringe FLUSH ONE (19:43)
[2022-06-27] MEDS ORDERED: Iopamidol 755 Mg/ML 100 ML Bottle IVPUSH ONE (19:43)
[2022-06-27] MEDS ORDERED: Sodium Chloride 0.9% 100 ML IV SCH (19:45)
== END 2022-06-27 20:24 | disposition home or self-care (01) ==
LOC: JD.ED 15:38
DX: I71.9 Aortic aneurysm of unspecified site, without rupture (principal); K20.90 Esophagitis, unspecified without bleeding; E11.40 Type 2 diabetes mellitus with diabetic neuropathy, unspecified; I10 Essential (primary) hypertension; F17.210 Nicotine dependence, cigarettes, uncomplicated; Z88.8 Allergy status to other drugs, medicaments and biological substances; Z88.5 Allergy status to narcotic agent; Z88.1 Allergy status to other antibiotic agents; Z88.2 Allergy status to sulfonamides; Z79.899 Other long term (current) drug therapy; Z79.82 Long term (current) use of aspirin; Z79.4 Long term (current) use of insulin; Z90.49 Acquired absence of other specified parts of digestive tract; Z90.710 Acquired absence of both cervix and uterus
CPT/HCPCS: 36415; 71045; 71045-26; 71275; 71275-26; 80053; 84484; 85025; 85379; 93005; 96374; 96376; 99285-25; J1170; J3490; Q9967

== ENCOUNTER 2023-05-15 08:53 | Inpatient (IN) | payer MEDICARE, OTHER ==
[2023-05-15] MEDS ORDERED: Sodium Chloride 0.9% 10 ML Syringe FLUSH PRN (09:14)
[2023-05-15 10:40] LABS: BASOPHILS ABSOLUTE AUTO 0.02 K/mm3 (0.01-0.08); BASOPHILS PERCENT AUTO 0.2 % (0.1-1.2); EOSINOPHILS ABSOLUTE AUTO 0.19 K/mm3 (0.04-0.36); EOSINOPHILS PERCENT AUTO 1.7 (0.7-5.8); HEMATOCRIT 37.6 % (34.1-44.9); IMMATURE GRAN ABSOLUTE AUTO 0.03 K/mm3 (0.00-0.10); IMMATURE GRAN PERCENT AUTO 0.3 % (<=1.0); LYMPHOCYTES ABSOLUTE AUTO 2.01 K/mm3 (1.18-3.74); LYMPHOCYTES PERCENT AUTO 17.5 % (19.3-51.7); MEAN CORPUSCULAR HEMOGLOBIN 31.5 pg (25.6-32.2); MEAN CORPUSCULAR HGB CONC 31.9 g/dl (32.2-35.5); MEAN CORPUSCULAR VOLUME 98.7 fl (79.4-94.8); MONOCYTES ABSOLUTE AUTO 0.82 K/mm3 (0.24-0.36); MONOCYTES PERCENT AUTO 7.1 % (4.7-12.5); NEUTROPHILS ABSOLUTE AUTO 8.43 K/mm3 (1.56-6.13); NEUTROPHILS PERCENT AUTO 73.2 % (34.0-71.1); PLATELET COUNT,PLT 343 K/mm3 (182-369); RED BLOOD CELL COUNT 3.81 M/mm3 (3.98-5.22)
[2023-05-15 11:00] LABS: INR 0.93
[2023-05-15 11:16] LABS: A/G RATIO 0.9 (1-2); ALANINE AMINOTRANSFERASE,ALT 82 U/L (14-59); ALBUMIN 3.4 g/dl (3.4-5.0); ALKALINE PHOSPHATASE 155 U/L (46-116); ASPARTATE AMNIOTRANSFERASE,AST 65 U/L (15-37); BILIRUBIN TOTAL 0.4 mg/dL (0.2-1.0); BLOOD UREA NITROGEN,BUN 31 mg/dL (7-18); BUN/CREATININE RATIO 16.3 (14-18); C-REACTIVE PROTEIN <0.2 mg/dL (<1.0); CALCIUM 8.7 mg/dL (8.5-10.1); CARBON DIOXIDE,CO2 29 mEq/L (21-32); CHLORIDE,CL 92 mEq/L (98-107); CREATINE KINASE,CK 144 U/L (26-192); CREATININE 1.9 mg/dL (0.55-1.02); EST CRCL DRUG DOSING (CG) 27.48 mL/min; ESTIMATED GFR 29 mL/min (>60); GLUCOSE RANDOM 135 mg/dL (70-99); MAGNESIUM 2.4 mg/dL (1.8-2.4); PROTEIN TOTAL,TP 7.2 g/dl (6.4-8.2); SODIUM,NA 130 mEq/L (136-145); TSH 1.767 uIU/mL (0.358-3.74)
[2023-05-15] MEDS ORDERED: oxyCODONE 5 MG Tab PO PRN (13:02)
[2023-05-15] MEDS ORDERED: Acetaminophen 325 MG Tab PO PRN (13:02)
[2023-05-15 13:13] LABS: APPEARANCE,URINE CLEAR (Clear); BILIRUBIN,URINE NEGATIVE (Negative); COLOR,URINE YELLOW (Yellow); GLUCOSE,URINE NEGATIVE (Negative); KETONES,URINE NEGATIVE (Negative); LEUKOCYTE ESTERASE,URINE NEGATIVE (Negative); NITRITE,URINE NEGATIVE (Negative); OCCULT BLOOD,URINE NEGATIVE (Negative); PROTEIN,URINE TRACE (Negative); UROBILINOGEN,URINE 0.2 (0.2-1.0)
[2023-05-15] MEDS ORDERED: Polyethylene Glycol 3350 Powder 17 GM Packet PO PRN (13:15)
[2023-05-15] MEDS ORDERED: Ondansetron 4 MG/2 ML SDV IV PRN (13:15)
[2023-05-15] MEDS ORDERED: Temazepam 7.5 MG Cap PO PRN (13:15)
[2023-05-15] MEDS ORDERED: Glucose Gel 15 GM in 37.5 GM Tube PO PRN (13:15)
[2023-05-15] MEDS ORDERED: Ondansetron 4 MG Tab.DIS PO PRN (13:15)
[2023-05-15 13:23] LABS: BARBITURATE SCREEN,URINE NEGATIVE (CUTOFF=200); BENZODIAZEPINES SCREEN,URINE NEGATIVE (CUTOFF=150); BUPRENORPHINE SCREEN,URINE NEGATIVE (CUTOFF=10); METHADONE SCREEN, URINE NEGATIVE (CUTOFF=200); METHAMPHETAMINES SCREEN, URINE NEGATIVE (CUTOFF=500); OXYCODONE SCREEN,URINE NEGATIVE (CUT0FF=100); PROPOXYPHENE SCREEN,URINE NEGATIVE (CUTOFF=300); THC SCREEN,URINE 20 NG/ML NEGATIVE (CUTOFF=50)
[2023-05-15 13:28] LABS: RBC,URINE 0-5 /hpf (0-5); SQUAMOUS EPITHELIAL CELLS,UR 0-5 /hpf (0-5); WBC,URINE 0-5 /hpf (0-5)
[2023-05-15 13:29] LABS: BACTERIA,URINE FEW /hpf (FEW); MUCUS,URINE FEW /hpf (FEW)
[2023-05-15 13:45] LABS: AMPHETAMINES SCREEN, URINE NEGATIVE (CUTOFF=500)
[2023-05-15 14:12] LABS: HEMOGLOBIN A1C 8.8 %
[2023-05-15] MEDS: Nicotine 14 MG/24 Hr Patch TRDERM SCH (14:38)
[2023-05-15] MEDS: Insulin Lispro 100 Unit/ML 3 ML KwikPen SUBCUT SCH ×2 (19:07→20:39)
[2023-05-15] MEDS: Sodium Bicarbonate 650 MG Tab PO SCH (20:41)
[2023-05-15] MEDS: Gabapentin 600 MG Tab PO SCH (20:41)
[2023-05-15] MEDS: traZODone 50 MG Tab PO SCH (20:41)
[2023-05-15] MEDS: Ferrous Sulfate 324 MG Tab.EC PO SCH (20:41)
[2023-05-15] MEDS: Sodium Chloride 0.9% 1,000 ML IV SCH (23:30)
[2023-05-16] MEDS: Pantoprazole 40 MG Tab.CR PO SCH (05:58)
[2023-05-16 06:40] LABS: BASOPHILS ABSOLUTE AUTO 0.02 K/mm3 (0.01-0.08); BASOPHILS PERCENT AUTO 0.2 % (0.1-1.2); EOSINOPHILS PERCENT AUTO 3.3 (0.7-5.8); HEMATOCRIT 37.6 % (34.1-44.9); HEMOGLOBIN 11.8 gm/dl (11.2-15.7); IMMATURE GRAN ABSOLUTE AUTO 0.02 K/mm3 (0.00-0.10); IMMATURE GRAN PERCENT AUTO 0.2 % (<=1.0); LYMPHOCYTES ABSOLUTE AUTO 2.23 K/mm3 (1.18-3.74); LYMPHOCYTES PERCENT AUTO 24.4 % (19.3-51.7); MEAN CORPUSCULAR HGB CONC 31.4 g/dl (32.2-35.5); MEAN CORPUSCULAR VOLUME 98.7 fl (79.4-94.8); MEAN PLATELET VOLUME 11.3 fl (9.4-12.3); MONOCYTES ABSOLUTE AUTO 1.42 K/mm3 (0.24-0.36); MONOCYTES PERCENT AUTO 15.6 % (4.7-12.5); NEUTROPHILS ABSOLUTE AUTO 5.14 K/mm3 (1.56-6.13); NEUTROPHILS PERCENT AUTO 56.3 % (34.0-71.1); PLATELET COUNT,PLT 332 K/mm3 (182-369); RED BLOOD CELL COUNT 3.81 M/mm3 (3.98-5.22); WHITE BLOOD CELL COUNT,WBC 9.13 K/mm3 (3.98-10.04)
[2023-05-16 06:55] LABS: BUN/CREATININE RATIO 15.7 (14-18); CALCIUM 8.2 mg/dL (8.5-10.1); CREATININE 1.4 mg/dL (0.55-1.02); EST CRCL DRUG DOSING (CG) 37.5 mL/min; POTASSIUM,K 4.1 mEq/L (3.5-5.1)
[2023-05-16 07:06] LABS: ANION GAP 10.1 (5-15)
[2023-05-16] MEDS: Insulin Lispro 100 Unit/ML 3 ML KwikPen SUBCUT SCH ×2 (08:57→13:35)
[2023-05-16] MEDS: Sodium Chloride 0.9% 1,000 ML IV SCH ×2 (08:58→17:49)
[2023-05-16] MEDS: Enoxaparin 30 MG/0.3 ML Syringe SUBCUT SCH (08:59)
[2023-05-16] MEDS: Gabapentin 600 MG Tab PO SCH ×2 (09:00→21:48)
[2023-05-16] MEDS: Ferrous Sulfate 324 MG Tab.EC PO SCH ×2 (09:00→21:49)
[2023-05-16] MEDS: DULoxetine 30 MG Cap PO SCH (09:00)
[2023-05-16] MEDS: Cholecalciferol (Vitamin D3) 25 MCG Tab PO SCH (09:00)
[2023-05-16] MEDS: Clopidogrel 75 MG Tab PO SCH (09:00)
[2023-05-16] MEDS: Cyanocobalamin (Vitamin B12) 1,000 MCG Tab PO SCH (09:01)
[2023-05-16] MEDS: Thiamine 100 MG Tab PO SCH (09:05)
[2023-05-16] MEDS: Sodium Bicarbonate 650 MG Tab PO SCH ×2 (09:05→21:48)
[2023-05-16] MEDS: Lisinopril 20 MG Tab PO SCH (09:46)
[2023-05-16] MEDS: Hydrochlorothiazide 25 MG Tab PO SCH (09:46)
[2023-05-16] MEDS: oxyCODONE ER 10 MG TAB.ER PO SCH ×2 (10:33→21:46)
[2023-05-16] MEDS: Multivitamins with Minerals/Folic Acid/Lutein/Zeaxanth Tab PO SCH (10:33)
[2023-05-16] MEDS: Acetaminophen/oxyCODONE 325-5 MG Tab PO PRN (10:34)
[2023-05-16] MEDS ORDERED: ALPRAZolam 0.5 MG Tab PO PRN (12:46)
[2023-05-16] MEDS ORDERED: buPROPion 150 MG Tab.ER PO SCH (13:00)
[2023-05-16] MEDS: Nicotine 14 MG/24 Hr Patch TRDERM SCH (15:16)
[2023-05-16] MEDS: Melatonin 3 MG Tab PO SCH ×2 (17:37→21:48)
[2023-05-16] MEDS: Docusate Sodium 100 MG Cap PO PRN (21:47)
[2023-05-16] MEDS: Pravastatin 20 MG Tab PO SCH (21:49)
[2023-05-16] MEDS: traZODone 50 MG Tab PO SCH (21:49)
[2023-05-17 06:06] LABS: BASOPHILS ABSOLUTE AUTO 0.02 K/mm3 (0.01-0.08); BASOPHILS PERCENT AUTO 0.2 % (0.1-1.2); EOSINOPHILS ABSOLUTE AUTO 0.32 K/mm3 (0.04-0.36); EOSINOPHILS PERCENT AUTO 3.2 (0.7-5.8); HEMATOCRIT 37.1 % (34.1-44.9); HEMOGLOBIN 11.8 gm/dl (11.2-15.7); IMMATURE GRAN ABSOLUTE AUTO 0.03 K/mm3 (0.00-0.10); IMMATURE GRAN PERCENT AUTO 0.3 % (<=1.0); LYMPHOCYTES ABSOLUTE AUTO 2.74 K/mm3 (1.18-3.74); MEAN CORPUSCULAR HEMOGLOBIN 31.7 pg (25.6-32.2); MEAN CORPUSCULAR HGB CONC 31.8 g/dl (32.2-35.5); MEAN CORPUSCULAR VOLUME 99.7 fl (79.4-94.8); MEAN PLATELET VOLUME 11.3 fl (9.4-12.3); MONOCYTES ABSOLUTE AUTO 1.42 K/mm3 (0.24-0.36); NEUTROPHILS PERCENT AUTO 55.3 % (34.0-71.1); PLATELET COUNT,PLT 311 K/mm3 (182-369); RED BLOOD CELL COUNT 3.72 M/mm3 (3.98-5.22); WHITE BLOOD CELL COUNT,WBC 10.13 K/mm3 (3.98-10.04)
[2023-05-17 06:17] LABS: BUN/CREATININE RATIO 14.2 (14-18); CALCIUM 8.6 mg/dL (8.5-10.1); CREATININE 1.2 mg/dL (0.55-1.02)
[2023-05-17] MEDS: Pantoprazole 40 MG Tab.CR PO SCH (06:28)
[2023-05-17] MEDS: Sodium Chloride 0.9% 1,000 ML IV SCH (06:28)
[2023-05-17] MEDS: Acetaminophen/oxyCODONE 325-5 MG Tab PO PRN ×2 (06:36→15:42)
[2023-05-17 06:38] LABS: EST CRCL DRUG DOSING (CG) 43.51 mL/min
[2023-05-17] MEDS: Hydrochlorothiazide 25 MG Tab PO SCH (10:10)
[2023-05-17] MEDS: buPROPion 150 MG Tab.ER PO SCH (10:10)
[2023-05-17] MEDS: Multivitamins with Minerals/Folic Acid/Lutein/Zeaxanth Tab PO SCH (10:10)
[2023-05-17] MEDS: Cyanocobalamin (Vitamin B12) 1,000 MCG Tab PO SCH (10:10)
[2023-05-17] MEDS: Folic Acid 1 MG Tab PO SCH (10:10)
[2023-05-17] MEDS: Clopidogrel 75 MG Tab PO SCH (10:11)
[2023-05-17] MEDS: Thiamine 100 MG Tab PO SCH (10:11)
[2023-05-17] MEDS: Cholecalciferol (Vitamin D3) 25 MCG Tab PO SCH (10:11)
[2023-05-17] MEDS: Calcium Carbonate/Vitamin D3 600 MG-200 Units Tab PO SCH (10:12)
[2023-05-17] MEDS: oxyCODONE ER 10 MG TAB.ER PO SCH ×2 (10:12→21:10)
[2023-05-17] MEDS: Gabapentin 600 MG Tab PO SCH ×2 (10:12→21:12)
[2023-05-17] MEDS: Sodium Bicarbonate 650 MG Tab PO SCH ×2 (10:12→21:12)
[2023-05-17] MEDS: Aspirin 81 MG Tab.Chew PO SCH (10:12)
[2023-05-17] MEDS: Ferrous Sulfate 324 MG Tab.EC PO SCH ×2 (10:13→21:10)
[2023-05-17] MEDS: Lisinopril 20 MG Tab PO SCH (10:13)
[2023-05-17] MEDS: Enoxaparin 30 MG/0.3 ML Syringe SUBCUT SCH (10:13)
[2023-05-17] MEDS: ARIPiprazole 5 MG Tab PO SCH (10:38)
[2023-05-17] MEDS: DULoxetine 30 MG Cap PO SCH ×2 (10:39→13:29)
[2023-05-17] MEDS: Nicotine 14 MG/24 Hr Patch TRDERM SCH (15:32)
[2023-05-17] MEDS: traZODone 50 MG Tab PO SCH (21:11)
[2023-05-17] MEDS: Pravastatin 20 MG Tab PO SCH (21:11)
[2023-05-17] MEDS: Melatonin 3 MG Tab PO SCH (21:12)
[2023-05-18 06:06] LABS: BASOPHILS ABSOLUTE AUTO 0.02 K/mm3 (0.01-0.08); BASOPHILS PERCENT AUTO 0.2 % (0.1-1.2); EOSINOPHILS ABSOLUTE AUTO 0.39 K/mm3 (0.04-0.36); EOSINOPHILS PERCENT AUTO 3.9 (0.7-5.8); HEMATOCRIT 36.5 % (34.1-44.9); HEMOGLOBIN 11.4 gm/dl (11.2-15.7); IMMATURE GRAN ABSOLUTE AUTO 0.03 K/mm3 (0.00-0.10); IMMATURE GRAN PERCENT AUTO 0.3 % (<=1.0); LYMPHOCYTES ABSOLUTE AUTO 2.35 K/mm3 (1.18-3.74); LYMPHOCYTES PERCENT AUTO 23.5 % (19.3-51.7); MEAN CORPUSCULAR HEMOGLOBIN 31.2 pg (25.6-32.2); MEAN CORPUSCULAR HGB CONC 31.2 g/dl (32.2-35.5); MONOCYTES ABSOLUTE AUTO 1.41 K/mm3 (0.24-0.36); MONOCYTES PERCENT AUTO 14.1 % (4.7-12.5); NEUTROPHILS ABSOLUTE AUTO 5.82 K/mm3 (1.56-6.13); PLATELET COUNT,PLT 314 K/mm3 (182-369); RED BLOOD CELL COUNT 3.65 M/mm3 (3.98-5.22); WHITE BLOOD CELL COUNT,WBC 10.02 K/mm3 (3.98-10.04)
[2023-05-18 06:30] LABS: BUN/CREATININE RATIO 13.3 (14-18); CALCIUM 8.6 mg/dL (8.5-10.1); CREATININE 1.2 mg/dL (0.55-1.02); EST CRCL DRUG DOSING (CG) 43.51 mL/min
[2023-05-18] MEDS: Pantoprazole 40 MG Tab.CR PO SCH (06:31)
[2023-05-18] MEDS: DULoxetine 30 MG Cap PO SCH (08:00)
[2023-05-18] MEDS: Folic Acid 1 MG Tab PO SCH (08:00)
[2023-05-18] MEDS: Cholecalciferol (Vitamin D3) 25 MCG Tab PO SCH (08:00)
[2023-05-18] MEDS: Enoxaparin 30 MG/0.3 ML Syringe SUBCUT SCH (08:00)
[2023-05-18] MEDS: Gabapentin 600 MG Tab PO SCH (08:00)
[2023-05-18] MEDS: ARIPiprazole 5 MG Tab PO SCH (08:00)
[2023-05-18] MEDS: buPROPion 150 MG Tab.ER PO SCH (08:00)
[2023-05-18] MEDS: Clopidogrel 75 MG Tab PO SCH (08:01)
[2023-05-18] MEDS: Sodium Bicarbonate 650 MG Tab PO SCH (08:01)
[2023-05-18] MEDS: Ferrous Sulfate 324 MG Tab.EC PO SCH (08:01)
[2023-05-18] MEDS: Hydrochlorothiazide 25 MG Tab PO SCH (08:01)
[2023-05-18] MEDS: Docusate Sodium 100 MG Cap PO PRN (08:01)
[2023-05-18] MEDS: Thiamine 100 MG Tab PO SCH (08:01)
[2023-05-18] MEDS: oxyCODONE ER 10 MG TAB.ER PO SCH (08:01)
[2023-05-18] MEDS: Cyanocobalamin (Vitamin B12) 1,000 MCG Tab PO SCH (08:02)
[2023-05-18] MEDS: Calcium Carbonate/Vitamin D3 600 MG-200 Units Tab PO SCH (08:02)
[2023-05-18] MEDS: Lisinopril 20 MG Tab PO SCH (08:02)
[2023-05-18] MEDS: Aspirin 81 MG Tab.Chew PO SCH (08:02)
[2023-05-18] MEDS: Multivitamins with Minerals/Folic Acid/Lutein/Zeaxanth Tab PO SCH (10:54)
[2023-05-18 11:56] VITALS: BP 134/85; PULSE 89
[2023-05-18] MEDS: Acetaminophen/oxyCODONE 325-5 MG Tab PO PRN (13:24)
== END 2023-05-18 13:38 | disposition home or self-care (01) | DRG 552 ==
LOC: JD.ED 08:53 → JD.MS 13:02
PROVIDERS: ADMIT Hospitalist; ATTEND Hospitalist
PROC: 05HC33Z Insertion of Infusion Device into Left Basilic Vein, Percutaneous Approach (ICD-10-PCS; principal; 2023-05-15)
DX: S32.049A Unspecified fracture of fourth lumbar vertebra, initial encounter for closed fracture (principal); E87.1 Hypo-osmolality and hyponatremia; S32.511A Fracture of superior rim of right pubis, initial encounter for closed fracture; S22.049A Unspecified fracture of fourth thoracic vertebra, initial encounter for closed fracture; N17.9 Acute kidney failure, unspecified; S32.019A Unspecified fracture of first lumbar vertebra, initial encounter for closed fracture; S32.029A Unspecified fracture of second lumbar vertebra, initial encounter for closed fracture; E86.0 Dehydration; E11.51 Type 2 diabetes mellitus with diabetic peripheral angiopathy without gangrene; I10 Essential (primary) hypertension; E11.42 Type 2 diabetes mellitus with diabetic polyneuropathy; S32.591A Other specified fracture of right pubis, initial encounter for closed fracture; E66.9 Obesity, unspecified; R79.89 Other specified abnormal findings of blood chemistry; I71.21 Aneurysm of the ascending aorta, without rupture; F41.9 Anxiety disorder, unspecified; M79.7 Fibromyalgia; E11.9 Type 2 diabetes mellitus without complications; F32.A Depression, unspecified; H53.8 Other visual disturbances; K21.9 Gastro-esophageal reflux disease without esophagitis; M62.838 Other muscle spasm; D64.9 Anemia, unspecified; E78.5 Hyperlipidemia, unspecified; R07.9 Chest pain, unspecified; F17.210 Nicotine dependence, cigarettes, uncomplicated; Z79.02 Long term (current) use of antithrombotics/antiplatelets; Z88.8 Allergy status to other drugs, medicaments and biological substances; Z88.5 Allergy status to narcotic agent; Z88.2 Allergy status to sulfonamides; Z79.899 Other long term (current) drug therapy; Z88.6 Allergy status to analgesic agent; Z79.82 Long term (current) use of aspirin; Z79.84 Long term (current) use of oral hypoglycemic drugs; Z90.710 Acquired absence of both cervix and uterus; Z90.5 Acquired absence of kidney; Z98.890 Other specified postprocedural states; Y92.009 Unspecified place in unspecified non-institutional (private) residence as the place of occurrence of the external cause; Z68.21 Body mass index [BMI] 21.0-21.9, adult; Z98.84 Bariatric surgery status; Z79.4 Long term (current) use of insulin; W18.30XA Fall on same level, unspecified, initial encounter; Y93.01 Activity, walking, marching and hiking
CPT/HCPCS: 36415; 70450; 71250; 72125; 72131; 74176; 80053; 80307; 82550; 83036; 83735; 84443; 85025; 85610; 85652; 85730; 86140; 93005; 99285; J3490; 36410; 80048; 80306; 81001; 82947; 83880; 84484; 90792; 93010; 93306; 93880; 93880-26; 97116-GP; 97162-GP; 97530-GP; 99284; A9270-GY; J1650; J7030

== ENCOUNTER 2023-06-27 14:38 | Emergency (ER) | payer SELFPAY ==
[2023-06-27 16:19] VITALS: PULSE 76
[2023-06-27] MEDS ORDERED: Acetaminophen/oxyCODONE 325-5 MG Tab PO ONE (17:02)
[2023-06-27 18:20] VITALS: BP 141/90
== END 2023-06-27 18:17 | disposition home or self-care (01) ==
LOC: JD.ED 14:38
DX: S32.10XA Unspecified fracture of sacrum, initial encounter for closed fracture (principal); F17.210 Nicotine dependence, cigarettes, uncomplicated; E11.9 Type 2 diabetes mellitus without complications; Z79.899 Other long term (current) drug therapy; Z88.1 Allergy status to other antibiotic agents; Z88.5 Allergy status to narcotic agent; Z88.6 Allergy status to analgesic agent; Z88.2 Allergy status to sulfonamides; W18.00XA Striking against unspecified object with subsequent fall, initial encounter
CPT/HCPCS: 70450; 72125; 72128; 72131; 72192; 99283; A9270

== ENCOUNTER 2023-12-06 09:05 | Emergency (ER) | payer MEDICARE ==
[2023-12-06] MEDS ORDERED: Sodium Chloride 0.9% 10 ML Syringe FLUSH PRN (09:16)
[2023-12-06 09:23] LABS: BASOPHILS ABSOLUTE AUTO 0.1 K/mm3 (0.0-0.2); BASOPHILS PERCENT AUTO 0.4 % (0.0-1.0); EOSINOPHILS ABSOLUTE AUTO 0.5 K/mm3 (0.0-0.4); EOSINOPHILS PERCENT AUTO 4.3 % (0.0-6.0); HEMATOCRIT 38.3 % (37.0-47.0); HEMOGLOBIN 12.5 gm/dl (12.0-16.0); IMMATURE GRAN ABSOLUTE AUTO 0.08 K/mm3 (0.00-0.05); IMMATURE GRAN PERCENT AUTO 0.7 % (0.0-0.4); LYMPHOCYTES ABSOLUTE AUTO 3.1 K/mm3 (1.0-4.8); MEAN CORPUSCULAR HEMOGLOBIN 32.7 pg (28.0-32.0); MEAN CORPUSCULAR HGB CONC 32.6 g/dl (32.0-36.0); MEAN CORPUSCULAR VOLUME 100.3 fl (83.0-99.0); MEAN PLATELET VOLUME 9.9 fl (9.4-12.3); MONOCYTES ABSOLUTE AUTO 1.3 K/mm3 (0.0-0.8); MONOCYTES PERCENT AUTO 10.8 % (0.0-8.0); NEUTROPHILS ABSOLUTE AUTO 6.8 K/mm3 (1.8-7.7); NEUTROPHILS PERCENT AUTO 57.8 % (41.0-71.0); PLATELET COUNT,PLT 342 K/mm3 (150-400); RED BLOOD CELL COUNT 3.82 M/mm3 (4.10-5.30); WHITE BLOOD CELL COUNT,WBC 11.71 K/mm3 (3.9-11.3)
[2023-12-06 09:45] LABS: ALBUMIN 3.7 g/dl (3.4-5.0); ANION GAP 14.1 (5-15); BILIRUBIN TOTAL 0.5 mg/dL (0.2-1.0); BUN/CREATININE RATIO 14.8 (14-18); CALCIUM 9.2 mg/dL (8.5-10.1); CREATININE 2.1 mg/dL (0.55-1.02); EST CRCL DRUG DOSING (CG) 24.67 mL/min; MAGNESIUM 2.1 mg/dL (1.8-2.4); POTASSIUM,K 4.1 mEq/L (3.5-5.1); PROTEIN TOTAL,TP 7.6 g/dl (6.4-8.2)
[2023-12-06 09:48] LABS: SLIDE REVIEW ABNORMAL SMEAR
[2023-12-06] MEDS ORDERED: Sodium Chloride 0.9% 1,000 ML IV ONE (10:03)
[2023-12-06] MEDS ORDERED: diphenhydrAMINE 50 MG/ML SDV IVPUSH ONE (10:57)
[2023-12-06 13:01] VITALS: BP 116/77; PULSE 72
== END 2023-12-06 12:38 | disposition home or self-care (01) ==
LOC: JD.ED 09:05
DX: S01.01XA Laceration without foreign body of scalp, initial encounter (principal); S70.01XA Contusion of right hip, initial encounter; E86.0 Dehydration; N28.9 Disorder of kidney and ureter, unspecified; E11.40 Type 2 diabetes mellitus with diabetic neuropathy, unspecified; Z87.891 Personal history of nicotine dependence; Z86.73 Personal history of transient ischemic attack (TIA), and cerebral infarction without residual deficits; Z79.899 Other long term (current) drug therapy; Z79.4 Long term (current) use of insulin; Z88.5 Allergy status to narcotic agent; Z88.6 Allergy status to analgesic agent; Z88.2 Allergy status to sulfonamides; Z88.8 Allergy status to other drugs, medicaments and biological substances; Z79.02 Long term (current) use of antithrombotics/antiplatelets; Z79.82 Long term (current) use of aspirin; Z79.84 Long term (current) use of oral hypoglycemic drugs
CPT/HCPCS: 12001; 36415; 70450; 72125; 73502; 80053; 82947; 83735; 84484; 85025; 93005; 96361; 96374; 99284; J1200; J3490; J7030; 93010

== ENCOUNTER 2023-12-11 06:45 | Day surgery (SDC) | payer MEDICARE ==
[2023-12-11] MEDS ORDERED: Cefuroxime 10 MG/ML SYRINGE EYELF SCH (07:00)
[2023-12-11] MEDS ORDERED: Lidocaine 1% PF 2 ML SDV INJECT SCH (07:00)
[2023-12-11] MEDS ORDERED: Pilocarpine 4% Ophth Soln 15 ML Bot EYELF SCH (07:00)
[2023-12-11] MEDS ORDERED: Polymyxin B/Trimethoprim 10 ML Bottle EYELF SCH (07:00)
[2023-12-11] MEDS: Ofloxacin 0.3% Ophth Soln 5 ML Bottle EYELF SCH ×3 (07:10→08:39)
[2023-12-11] MEDS: Brimonidine 0.2% Ophth Soln 5 ML Bottle EYELF SCH ×3 (07:15→08:39)
[2023-12-11] MEDS: Phenylephrine 2.5% Ophth Soln 2 ML Bot EYELF SCH ×6 (07:21→08:13)
[2023-12-11] MEDS: Tropicamide 1% Ophth Soln 3 ML Bottle EYELF SCH ×4 (07:25→07:56)
[2023-12-11] MEDS: Tetracaine HCl/PF 0.5% 4 ML Bottle EYEBOTH SCH ×4 (07:59→08:16)
[2023-12-11 08:54] VITALS: BP 119/70; PULSE 78
== END 2023-12-11 08:53 ==
LOC: JD.SDS 06:45
PROVIDERS: ATTEND Ophthalmology
DX: H25.813 Combined forms of age-related cataract, bilateral (principal); H25.013 Cortical age-related cataract, bilateral; H16.103 Unspecified superficial keratitis, bilateral; H16.223 Keratoconjunctivitis sicca, not specified as Sjogren's, bilateral; I10 Essential (primary) hypertension; E10.40 Type 1 diabetes mellitus with diabetic neuropathy, unspecified; F32.A Depression, unspecified; Z87.891 Personal history of nicotine dependence; Z79.82 Long term (current) use of aspirin; Z79.84 Long term (current) use of oral hypoglycemic drugs; Z79.899 Other long term (current) drug therapy; Z88.6 Allergy status to analgesic agent; Z88.2 Allergy status to sulfonamides; Z88.8 Allergy status to other drugs, medicaments and biological substances
CPT/HCPCS: A9270-GY; J0697; J3490

== ENCOUNTER 2024-01-08 09:02 | Day surgery (SDC) | payer MEDICARE ==
[2024-01-08 09:19] VITALS: PULSE 77
[2024-01-08] MEDS: Ofloxacin 0.3% Ophth Soln 5 ML Bottle EYERT SCH (09:25)
[2024-01-08] MEDS: Brimonidine 0.2% Ophth Soln 5 ML Bottle EYERT SCH (09:30)
[2024-01-08] MEDS: Phenylephrine 2.5% Ophth Soln 2 ML Bot EYERT SCH (09:35)
[2024-01-08] MEDS: Tropicamide 1% Ophth Soln 3 ML Bottle EYERT SCH (09:43)
[2024-01-08] MEDS: Tetracaine HCl/PF 0.5% 4 ML Bottle EYEBOTH SCH (10:44)
[2024-01-08] MEDS: Lidocaine 1% PF 2 ML SDV INJECT SCH (11:11)
[2024-01-08] MEDS: Cefuroxime 10 MG/ML SYRINGE EYERT SCH (11:23)
[2024-01-08] MEDS: Pilocarpine 4% Ophth Soln 15 ML Bot EYERT SCH (11:24)
[2024-01-08 11:38] VITALS: BP 126/80
== END 2024-01-08 11:31 | disposition home or self-care (01) ==
LOC: JD.SDS 09:02
PROVIDERS: ATTEND Ophthalmology
DX: E10.36 Type 1 diabetes mellitus with diabetic cataract (principal); H25.811 Combined forms of age-related cataract, right eye; H21.81 Floppy iris syndrome; H16.103 Unspecified superficial keratitis, bilateral; H16.223 Keratoconjunctivitis sicca, not specified as Sjogren's, bilateral; E10.21 Type 1 diabetes mellitus with diabetic nephropathy; I10 Essential (primary) hypertension; F41.9 Anxiety disorder, unspecified; F32.A Depression, unspecified; Z87.891 Personal history of nicotine dependence; Z98.84 Bariatric surgery status; Z79.84 Long term (current) use of oral hypoglycemic drugs; Z79.899 Other long term (current) drug therapy; Z88.2 Allergy status to sulfonamides; Z88.6 Allergy status to analgesic agent; Z88.8 Allergy status to other drugs, medicaments and biological substances
CPT/HCPCS: A9270-GY; J0697; J3490; V2632

== ENCOUNTER 2024-10-30 09:34 | Emergency (ER) | payer MEDICARE ==
[2024-10-30] MEDS: Acetaminophen 325 MG Tab PO ONE (10:49)
[2024-10-30] MEDS ORDERED: Sodium Chloride 0.9% 10 ML Syringe FLUSH PRN (12:58)
[2024-10-30] MEDS: droPERidol 5 MG/2 ML SDV IVPUSH ONE (13:54)
[2024-10-30] MEDS: diphenhydrAMINE 50 MG/ML SDV IVPUSH ONE (13:54)
[2024-10-30] MEDS: fentaNYL 100 MCG/2 ML SDV IVPUSH ONE (14:47)
[2024-10-30 15:50] VITALS: BP 132/90; PULSE 71
== END 2024-10-30 15:40 | disposition home or self-care (01) ==
LOC: JD.ED 09:34
DX: S92.001A Unspecified fracture of right calcaneus, initial encounter for closed fracture (principal); I25.10 Atherosclerotic heart disease of native coronary artery without angina pectoris; I12.9 Hypertensive chronic kidney disease with stage 1 through stage 4 chronic kidney disease, or unspecified chronic kidney disease; N18.9 Chronic kidney disease, unspecified; E11.22 Type 2 diabetes mellitus with diabetic chronic kidney disease; E11.42 Type 2 diabetes mellitus with diabetic polyneuropathy; Z86.73 Personal history of transient ischemic attack (TIA), and cerebral infarction without residual deficits; Z90.710 Acquired absence of both cervix and uterus; Z87.891 Personal history of nicotine dependence; Z88.5 Allergy status to narcotic agent; Z88.6 Allergy status to analgesic agent; Z88.2 Allergy status to sulfonamides; Z88.8 Allergy status to other drugs, medicaments and biological substances; Z79.4 Long term (current) use of insulin; Z79.52 Long term (current) use of systemic steroids; Z79.82 Long term (current) use of aspirin; Z79.84 Long term (current) use of oral hypoglycemic drugs; Z79.899 Other long term (current) drug therapy; W01.198A Fall on same level from slipping, tripping and stumbling with subsequent striking against other object, initial encounter
CPT/HCPCS: 29515; 73502; 73560; 73610; 73630; 73700; 96374; 96375; 99284; J1200; J1790; J3010